=== PATIENT | female | born 1945 | race Caucasian/White ===

== ENCOUNTER → 2016-09-13 | Outpatient (CLI) | payer OTHER | LOC: MMPC 11:11 | DX: M19.041 Primary osteoarthritis, right hand (principal); M25.552 Pain in left hip; D64.9 Anemia, unspecified; F32.9 Major depressive disorder, single episode, unspecified; K58.9 Irritable bowel syndrome, unspecified; E11.9 Type 2 diabetes mellitus without complications ==

== ENCOUNTER 2016-10-30 20:03 | Emergency (ER) | payer OTHER ==
[2016-10-30] MEDS ORDERED: fentaNYL Inj 100 MCG/2 ML VIAL IVP ONE (20:08)
[2016-10-30] MEDS ORDERED: NITROGLYCERIN 0.4 MG SL TAB (BOTTLE OF 3) SL ONE (20:08)
[2016-10-30] MEDS ORDERED: ONDANSETRON 4 MG/2 ML VIAL IVP ONE (20:08)
[2016-10-30] MEDS ORDERED: Sodium Chloride 0.9% 1,000 ML PRIMARY IV ONE (20:08)
[2016-10-30] MEDS ORDERED: ASPIRIN 81 MG (BABY) CHEWABLE TABLET PO ONE (20:09)
--- NOTE | 2016-10-30 20:13 | PDOC ---
Chest Pain HPI - General Chief Complaint: Chest Pain Stated Complaint: Chest Pain Date Seen by Provider: 10/30/16 Time Seen by Provider: 20:11 Source: Patient Exam Limitations: POSITIVE: No limitations Treatment Prior to Arrival: REPORTS: Nitroglycerin Nurse's Notes Reviewed & Considered: Yes EMS Report Reviewed & Considered: Verbal - History of Present Illness Initial Comments: In today with chief complaint of chest pain. At 1900 tonight patient was eating fish sticks when she developed a sharp substernal chest pain. No radiation, no shortness of breath. She denies any fever chills or sweats, nausea vomiting or diarrhea, no hematuria dysuria, no headache. Body Location Affected: REPORTS: Chest Timing: REPORTS: Abrupt Duration: 1 hour Severity: Moderate Context: REPORTS: Rest Quality: REPORTS: "Pain", Sharpness, Stabbing Radiation: REPORTS: None Associated Symptoms: REPORTS: Other (None) Modifying Factors: improves with: Nitroglycerin Similar Symptoms Previously: No Recently seen/treated/hospitalized: No Any Prior Injuries Related to Current Complaint?: No - Patient Home Medications Home Medications: Home Medications Aspirin [Ecotrin] 81 mg PO DAILY 03/08/13 Calcium Carbonate/Vitamin D3 [Calcium 600 + Vit D 200 Tablet] 1 tab PO QD #30 tab 07/07/15 Desvenlafaxine Succinate [Pristiq Er] 1 tab PO QHS #30 tab 07/07/15 Nitroglycerin 0.4 mg SL ONCE #25 tab 09/14/15 Fesoterodine Fumarate [Toviaz] 1 tab PO QD #90 tab 04/25/16 Furosemide 1 tab PO 3XW #15 tab 05/22/16 Eluxadoline [Viberzi] 1 tab PO BID #60 tab 05/31/16 Isosorbide Mononitrate [Isosorbide Mononitrate Er] 1 tab PO QD #90 tab 07/10/16 Montelukast Sodium 1 tab PO QD #30 tab 07/10/16 Cholecalciferol (Vitamin D3) [Vitamin D3] 1 tab PO QD #30 tab 08/09/16 Cyanocobalamin (Vitamin B-12) [Vitamin B12] 1 tab PO QD #30 tab 08/09/16 Lactobacillus Combo No.10 [Probiotic] 2 cap PO QD PRN #60 cap 08/09/16 Lorazepam [Ativan] 0.5 - 2 tab PO QHS PRN #90 tab 08/09/16 Atorvastatin Calcium 1 tab PO QD #30 tab 08/16/16 Fluticasone/Salmeterol [Advair 250-50 Diskus] 1 puff INH BID #1 puff 08/17/16 Bacillus Coagulans [Probiotic] 1 cap PO BID #60 cap 09/13/16 Ibuprofen 1 tab PO BID PRN #60 tab 09/15/16 Ondansetron HCl [Zofran] 1 tab PO QID PRN #30 tab 09/26/16 Diltiazem HCl [Cardizem Cd] 1 tab PO QD #90 cap 10/20/16 Levothyroxine Sodium 1 tab PO QD #30 tab 10/25/16 - Patient Allergies Allergies/Adverse Reactions: Allergies Allergy/AdvReac Type Severity Reaction Status Date / Time codeine Allergy Severe RASH Verified 10/30/16 20:35 morphine Allergy Severe RASH Verified 10/30/16 20:35 cephalexin monohydrate Allergy Intermediate UNSURE Verified 10/30/16 20:35 [From Keflex] ciprofloxacin [From Cipro] Allergy Intermediate UNSURE Verified 10/30/16 20:35 ciprofloxacin HCl Allergy Intermediate UNSURE Verified 10/30/16 20:35 [From Cipro] latex Allergy Intermediate LATEX Verified 10/30/16 20:35 sulfamethoxazole Allergy Intermediate RASH Verified 10/30/16 20:35 [From Bactrim] trimethoprim [From Bactrim] Allergy Intermediate RASH Verified 10/30/16 20:35 cyclobenzaprine HCl AdvReac Intermediate BEHAVIOR Verified 10/30/16 20:35 [From Flexeril] CHANGE TAPE AdvReac Intermediate RASH/ Uncoded 10/30/16 20:35 IRRITATION Past Medical History - heen HEENT History: Hard of Hearing Cardiovascular History: Hypertension, Angina, Hyperlipidemia, Other (please comment) Additional Cardiovasular History: Hx of Stent placements, CABG-3 vessel Respiratory History: Sleep Apnea, Home Oxygen Use, Other (please comment) Additional Respiratory History: Hx of pulmonary fibrosis. 1L AT NIGHT Gastrointestinal History: Diverticulitis, Irritable Bowel Syndrome, Other ( please comment) Additional Gastrointestinal History: Hx of cholecystectomy Genitourinary History: Denies History Endocrine History: Type 2 Diabetes (diet), Hypothyroidism Musculoskeletal History: Arthritis Neurological History: Denies History Blood Disorders: Denies History Psychiatric History: Denies History History of Sexually Transmitted Diseases: No Cancer History: Denies History History of MDRO: No History of Other Communicable Diseases: No Alcohol Use: None Substance Use Type: None Previous Surgical History: Yes Type / Date of Surgery: COURTNEY Anesthesia Reactions: No Significant Family History: No pertinent family hx ROS - Limitations ROS Limitations: No Limitations Constitution: REPORTS: Denies Symptoms Cardiovascular: REPORTS: Chest Pain Respiratory: REPORTS: Denies Resp Symptoms Neurological: REPORTS: Denies Neuro Symptoms Gastrointestinal: REPORTS: Denies GI Symptoms Endocrine: REPORTS: Denies Symptoms Musculoskeletal: REPORTS: Denies MS Symptoms Genitourinary: REPORTS: Denies Symptoms Eyes: REPORTS: Denies Symptoms ENT: REPORTS: Denies Symptoms Skin: REPORTS: Denies Skin Symptoms Lympathic: REPORTS: Denies Lympathic Symptoms Immunologic: POSITIVE: Denies Symptoms Psychiatric: POSITIVE: Denies Psych Symptoms Chest Pain PE - General Appearance General Appearance: REPORTS: Alert, Cooperative, No Evidence of Trauma, Mild Distress - HEENT HEENT: POSITIVE: Head Inspection Nml, Eyes Inspection Nml, Ears Inspection Nml, Nose Inspection Nml, PERRL, EOMI - Neck Neck: REPORTS: Normal Inspection - Respiratory Respiratory: REPORTS: No Respiratory Distress, Breath Sounds Normal, Chest Non- Tender - Cardiovascular Cardiovascular: REPORTS: Regular Rate and Rhythm, Heart Sounds Normal - Abdomen Abdomen: Soft: (All Quadrants), Normal Bowel Sounds: (All Quadrants), Denies Tenderness: (All Quadrants) - Skin Skin: REPORTS: Intact, Normal For Race, Warm, Dry, No Rash - Extremities Extremity: Non-Tender: (All Extremities), Normal ROM: (All Extremities), Normal Inspection: (All Extremities) - Neurological / Psychological Neurological: POSITIVE: Affect Apporpriate, Oriented X3 Chest Pain Progress - Results Reviewed by me Xrays/CTs/US Reviewed by me: Yes Discussed with Radiologist: Yes Lab Results Reviewed: Yes Lab Results:: Laboratory Results 10/30/16 10/30/16 Range/Units 20:12 20:17 WBC 4.63 L (4.8-10.8) 10^3/uL RBC 3.93 L (4.20-5.40) 10^6/uL Hgb 12.1 (12.0-16.0) g/dL Hct 35.0 L (37.0-47.0) % MCV 89.1 (81-99) FL MCH 30.8 (27-31) PG MCHC 34.6 (33-37) g/dL RDW Std Deviation 38.6 L (39-50) fL RDW Coeff of Carlin 12.0 (11.5-14.5) % Plt Count 259 (140-350) 10*3/uL MPV 9.5 (7.4-12.2) FL Immature Gran % (Auto) 0.2 (0-5) % Neut % (Auto) 49.0 L (50-80) % Lymph % (Auto) 36.1 (10-50) % [place] % (Auto) 8.6 (5-15) % Eos % (Auto) 5.0 (0-8) % Baso % (Auto) 1.1 H (0-1) % Immature Gran # (Auto) 0.01 10*3/UL Neut # (Auto) 2.27 10*3/UL Lymph # (Auto) 1.67 10*3/uL [place] # (Auto) 0.40 (0.3-0.8) 10*3/UL Eos # (Auto) 0.23 10*3/UL Baso # (Auto) 0.05 10*3/UL WBC Morphology Comment Normal morphology (NORM) Plt Morphology Comment Normal morphology (NORM) RBC Morph Comment Normal morphology (NORM) ESR 11 (0-20) MM/HR PT 10.8 (9.7-11.4) secs INR 1.05 (0.00-5.90) N/A D-Dimer 0.45 (0.00-0.59) mg/L Sodium 141 (135-145) meq/L Potassium 3.8 (3.8-5.2) meq/L Chloride 105 (98-112) meq/L Carbon Dioxide 24 (23-33) meq/L Anion Gap 12 (5-20) BUN 24 H (7-22) mg/dL Creatinine 0.7 (0.50-1.20) mg/dL Estimated GFR (>60 ml/min/1.73m(2)) BUN/Creatinine Ratio 34.28 H (6-20) Glucose 127 H (78-110) mg/dL Calculated Osmolality 297.0 H (267-292) mOsm/kg Calcium 9.5 (8.7-10.7) mg/dL Magnesium 1.7 (1.6-2.4) mg/dL Total Bilirubin 0.4 (0.3-1.2) mg/dL AST 23 (8-39) IU/L ALT 48 (9-52) IU/L Alkaline Phosphatase 110 (38-126) IU/L Troponin I < 0.012 (< 0.040) ng/mL C-Reactive Protein 0.5 (0.0-0.9) mg/dL NT-Pro-B Natriuret Pep 602 H (0-125) PG/ML Total Protein 6.3 (6.1-8.0) g/dL Albumin 3.9 (3.5-4.8) g/dL Globulin 2.4 L (2.50-4.10) g/dL Albumin/Globulin Ratio 1.60 (1.3-2.0) mg/g - Patient's Progress Pain Medication Addressed: POSITIVE: Yes Status: POSITIVE: Improved Quality Measure Initiative: CP/AMI: POSITIVE: EKG, ASA - Consult Consulting MD will see pt:: POSITIVE: [facility] Counseled: POSITIVE: Patient, RE: Lab Results, RE: Radiology Results, RE: DX Patient Care Time - Estimated PCT Patient Care Time (In Minutes): 45 Vital Signs - VS Reviewed Vital Signs Reviewed: Yes Discharge Clinical Impression: Chest pain Discharge Disposition: Against Medical Advice Condition: Stable Patient Instructions Given at Discharge: Chest Pain (ED) Follow Up With: NAVNEET HARE [Primary Care Provider] -
[2016-10-30 20:15] LABS: BASOPHILS # (AUTO) 0.05 10*3/UL; BASOPHILS % (AUTO) 1.1 % (0-1); HEMOGLOBIN 12.1 g/dL (12.0-16.0); IMM GRAN % (AUTO) 0.2 % (0-5); IMM GRAN# (AUTO) 0.01 10*3/UL; LYMPHOCYTES # (AUTO) 1.67 10*3/uL; LYMPHOCYTES % (AUTO) 36.1 % (10-50); MEAN CORPUSCULAR HEMOGLOBIN 30.8 PG (27-31); MEAN CORPUSCULAR HGB CONC 34.6 g/dL (33-37); MEAN PLATELET VOLUME 9.5 FL (7.4-12.2); MONOCYTES % (AUTO) 8.6 % (5-15); NEUTROPHILS # (AUTO) 2.27 10*3/UL; RED BLOOD COUNT 3.93 10^6/uL (4.20-5.40); WHITE BLOOD COUNT 4.63 10^3/uL (4.8-10.8)
[2016-10-30 20:35] LABS: BILIRUBIN,TOTAL 0.4 mg/dL (0.3-1.2); BUN/CREATININE RATIO 34.28 (6-20); C-REACTIVE PROTEIN 0.5 mg/dL (0.0-0.9); CALCIUM 9.5 mg/dL (8.7-10.7); CREATININE 0.7 mg/dL (0.50-1.20); MAGNESIUM 1.7 mg/dL (1.6-2.4); PLATELET MORPHOLOGY COMMENT NORMAL MORPHOLOGY (NORM); POTASSIUM 3.8 meq/L (3.8-5.2); TOTAL PROTEIN 6.3 g/dL (6.1-8.0)
[2016-10-30 20:49] LABS: PROTHROMBIN TIME 10.8 secs (9.7-11.4)
[2016-10-30 20:51] LABS: ERYTHROCYTE SEDIMENTATION RATE 11 MM/HR (0-20)
[2016-10-30 21:10] VITALS: RESP 18; TEMP 98.5
--- NOTE | 2016-10-30 21:28 | DI ---
AP CHEST X-RAY, 10/30/2016 8:08 PM : Clinical History: Chest pain. Previous Exam: 08/10/2015. There is no acute soft tissue or bony abnormality. The patient is status post CABG. There is cardiome gia. The vessels are hazy are in more clustered and more numerous than on the previous study in this patient probably has very mild CHF. There is no acute infiltrate or effusion. Mediastinal structures are normal. There are no pulmonary nodules. Readin. There is no acute infiltrate or effusion. 2. Cardiomegaly with what probably represents very mild CHF.
--- NOTE | 2016-10-30 22:48 | EKG ---
[address] [place] [id number] Measurements Intervals [place] Rate: 68 P: 71 TX: 165 QRS: -38 QRSD: 99 T: 41 QT: 382 QTc: 399 Interpretive Statements SINUS RHYTHM LEFT AXIS DEVIATION MODERATE T-WAVE ABNORMALITY, CONSIDER ANTERIOR ISCHEMIA INTERPRETATION BASED ON A DEFAULT AGE OF 40 YEARS Compared to ECG 04/12/2015 18:39:34 Possible ischemia now present T-wave abnormality still present Electronically Signed On 10-31-16 12:18:37 [facility] by Desmond Mcdonough [email or web address]
== END 2016-10-30 22:30 | disposition left against medical advice (07) ==
LOC: ER 20:03
DX: R07.9 Chest pain, unspecified (principal); E11.9 Type 2 diabetes mellitus without complications
CPT/HCPCS: 71010; 80053; 83735; 83880; 84484; 85025; 85379; 85610; 85652; 86140; 93005; 93010; 96374; 96375; 99284 ×2; J3010; J2405

== ENCOUNTER → 2016-11-08 | Outpatient (CLI) | payer OTHER | LOC: MMPC 09:00 | DX: M19.042 Primary osteoarthritis, left hand (principal); M19.041 Primary osteoarthritis, right hand; D64.9 Anemia, unspecified; I25.10 Atherosclerotic heart disease of native coronary artery without angina pectoris; I10 Essential (primary) hypertension; K58.9 Irritable bowel syndrome, unspecified; E03.9 Hypothyroidism, unspecified; E11.9 Type 2 diabetes mellitus without complications | CPT/HCPCS: 99213; G0463 ==

== ENCOUNTER → 2016-12-21 | Outpatient (CLI) | payer OTHER | LOC: MMPC 11:11 | DX: R51 Headache (principal); M25.552 Pain in left hip; I25.10 Atherosclerotic heart disease of native coronary artery without angina pectoris; E11.9 Type 2 diabetes mellitus without complications; I10 Essential (primary) hypertension; F32.9 Major depressive disorder, single episode, unspecified; E78.5 Hyperlipidemia, unspecified; M19.042 Primary osteoarthritis, left hand; M19.041 Primary osteoarthritis, right hand; D64.9 Anemia, unspecified ==

== ENCOUNTER → 2016-12-28 | Outpatient (CLI) | payer OTHER ==
--- NOTE | 2016-12-28 13:37 | DI ---
CT HEAD SCAN WITHOUT IV CONTRAST, 12/28/2016 1:16 PM : Clinical History: Chronic tension-type headache, not intractable. Previous Exam: None at this facility. Scans are obtained from the foramen magnum to the vertex without IV contrast. The fourth ventricle is of normal size, shape, position and contour. The third and lateral ventricles are mildly dilated but are otherwise normal. There are old less than 5 mm diameter lacunar infarcts in both heads of the caudate nuclei and in the anterior limb of the right internal capsule. No acute hemorrhagic or bland infarct is present. There are multiple punctate periventricular white matter edyta encies bilaterally that extend into the watershed territory, consistent with small vessel ischemic di sease. This amount of ischemic disease is appropriate for the patient's age. There is moderate cerebe llar and mild cerebral atrophy. There are no extracerebral mantles or shift of the midline structures . Bone window evaluation is normal. The paranasal sinuses are normal. READIN. There are old lacunar infarcts in the head of both caudate nuclei and in the anterior limb of the right internal capsule. There is no acute hemorrhagic or bland infarct. 2. Small vessel ischemic disease. 3. Mild cerebral and moderate cerebellar atrophy.
== END ==
LOC: CT 13:06
DX: G44.229 Chronic tension-type headache, not intractable (principal); I67.82 Cerebral ischemia; G31.9 Degenerative disease of nervous system, unspecified
CPT/HCPCS: 70450

== ENCOUNTER → 2017-01-30 | Outpatient (CLI) | payer OTHER ==
--- NOTE | 2017-01-30 16:20 | DI ---
HISTORY: Right hip pain. FINDINGS: Examination reveals demineralization and degenerative arthritic changes. There is no defi nite evidence of recent fracture or dislocation. IMPRESSION: 1. No acute fracture identified. If symptoms should persist, a follow up examination is suggested.
== END ==
LOC: MOB LAB 14:25
DX: M25.551 Pain in right hip (principal); M16.11 Unilateral primary osteoarthritis, right hip
CPT/HCPCS: 73502

== ENCOUNTER → 2017-02-12 | Outpatient (CLI) | payer OTHER | LOC: MMPC 11:11 | DX: E11.9 Type 2 diabetes mellitus without complications (principal); G44.229 Chronic tension-type headache, not intractable; I25.10 Atherosclerotic heart disease of native coronary artery without angina pectoris; F32.9 Major depressive disorder, single episode, unspecified; D64.9 Anemia, unspecified; K58.9 Irritable bowel syndrome, unspecified; E03.9 Hypothyroidism, unspecified; M25.552 Pain in left hip ==

== ENCOUNTER 2017-06-06 10:24 | Inpatient (IN) ==
[2017-06-06] MEDS ORDERED: NORMAL SALINE 10 ML SYRINGE FLUSH IVP PRN ×2 (11:13→16:07)
[2017-06-06] MEDS ORDERED: Sodium Chloride 0.9% 1,000 ML PRIMARY IV ONE (11:13)
[2017-06-06 11:37] LABS: BASOPHILS # (AUTO) 0.01 10*3/UL; BASOPHILS % (AUTO) 0.2 % (0-1); EOSINOPHILS # (AUTO) 0.06 10*3/UL; Hematocrit [HCT] 33.6 % (37.0-47.0); Hemoglobin [HGB] 11.4 g/dL (12.0-16.0); LYMPHOCYTES # (AUTO) 0.68 10*3/uL; MEAN CORPUSCULAR HEMOGLOBIN 30.3 PG (27-31); MEAN CORPUSCULAR HGB CONC 33.9 g/dL (33-37); MEAN CORPUSCULAR VOLUME 89.4 FL (81-99); MEAN PLATELET VOLUME 9.5 FL (7.4-12.2); MONOCYTES # (AUTO) 0.36 10*3/UL (0.3-0.8); MONOCYTES % (AUTO) 5.8 % (5-15); NEUTROPHILS # (AUTO) 5.05 10*3/UL; NEUTROPHILS % (AUTO) 81.8 % (50-80); RED BLOOD COUNT 3.76 10^6/uL (4.20-5.40)
[2017-06-06 11:46] LABS: MAGNESIUM 1.7 mg/dL (1.6-2.4)
[2017-06-06 11:48] LABS: BILIRUBIN,URINE NEGATIVE (NEG); CLARITY,URINE CLEAR (CLEAR); COLOR,URINE YELLOW (Y); GLUCOSE, URINE (UA) NEGATIVE (NEG); NITRATE,URINE NEGATIVE (NEG); OCCULT BLOOD,URINE Trace-intact (NEG); PROTEIN,URINE NEGATIVE (NEG); UROBILINOGEN,URINE 0.2 EU/dL (0.2)
[2017-06-06 11:51] LABS: LIPASE 29 IU/L (23-300)
[2017-06-06 11:53] LABS: BLOOD UREA NITROGEN 10 mg/dL (7-22); SERUM ALBUMIN 3.5 g/dL (3.5-4.8)
[2017-06-06 12:00] LABS: BACTERIA,URINE RARE; RENAL EPITHELIAL CELLS,URINE RARE; URINE SAMPLE TYPE CATH SPECIMEN
[2017-06-06 12:23] LABS: PLATELET MORPHOLOGY COMMENT NORMAL MORPHOLOGY (NORM); RBC MORPHOLOGY COMMENT NORMAL MORPHOLOGY (NORM); WBC MORPHOLOGY COMMENT NORMAL MORPHOLOGY (NORM)
--- NOTE | 2017-06-06 13:18 | DI ---
CT HEAD SCAN WITHOUT IV CONTRAST, 06/06/2017 11:13 AM : Clinical History: Confusion. Head trauma with falls. Previous Exam: 05/18/2017. Scans are obtained from the foramen magnum to the vertex without IV contrast. The fourth ventricle is of normal size, shape, position and contour. The third and lateral ventricles are mildly dilated but are otherwise normal. There are is no evidence of an acute intracranial hemor rhagic focus, but there are old lacunar infarcts of both heads of the caudate nuclei. There is mild s mall vessel ischemic disease. There is mild cerebellar and cerebral atrophy. There are no extracerebr al mantles or shift of the midline structures. Bone window evaluation is normal. The paranasal sinuse s are normal. READIN. There is no evidence of an acute intracranial hemorrhagic focus. 2. Old lacunar infarcts involving the heads of the caudate nuclei. 3. Mild small vessel ischemic disease. 4. Mild cerebellar and cerebral atrophy. 5. There has been no significant interval change.
--- NOTE | 2017-06-06 13:21 | DI ---
AP /LATERAL CHEST X-RAY, 06/06/2017 11:13 AM : Clinical History: Weakness and confusion. Previous Exam: 06/05/2017. The patient is status post CABG. A vascular stent is present in the middle third of the LAD. There is cardiomegaly with CHF similar to the previous exam. No acute infiltrate is present but there is a sm all right pleural effusion also unchanged. Mediastinal structures are normal. Readin. Cardiomegaly with CHF and a small right pleural effusion. The patient is status post CABG and joe cement of a cardiac stent. 2. There has been no significant interval change.
--- NOTE | 2017-06-06 13:32 | DI ---
CT ABDOMEN SCAN WITH IV CONTRAST, 06/06/2017 11:17 AM : Clinical History: Lower abdominal pain. Previous Exam: 02/04/2016. Scans are performed from the lower lung bases through the liver and kidneys with IV contrast. 75 ml o f Isovue 300 was injected IV. No oral or rectal contrast was ordered. There is a small right pleural effusion. The liver is normal. The patient is status post cholecystect carline and the common bile duct measures 10 mm and this is to within normal limits for a postcholecystec curry patient. There is no abnormality of the spleen, pancreas, and adrenal glands. Both kidneys are n ormal in size, shape, position and contour. There is no hydronephrosis or hydroureter. No renal or ur eteral calculi are present. There are no abnormal retrocrural or periaortic nodes. No ascites is pres ent. READIN. Normal CT abdomen scan. 2. Small right pleural effusion. CT PELVIS SCAN WITH IV CONTRAST, 06/06/2017 11:17 AM: Clinical History: See above. Previous Exam: 02/04/2016. Scans are performed from just superior to the umbilicus to the symphysis pubis with IV contrast. This is the same bolus of contrast used for the CT scans of the abdomen. Scans through the lower abdomen and pelvis show no masses or abnormal fluid collections. There is no adenopathy. The appendix is not identified with certainty but there is no inflammatory mass either in the cecum or in the right lower quadrant. The small bowel, terminal ileum, and ileocecal valve are n ormal. The ascending and descending colon are normal. The transverse colon is filled with stool and t here does appear to be more enhancement of the mucosa than other portions of the colon. There is no p eriserosal inflammatory/infiltrative change. The sigmoid, rectosigmoid, and rectum are normal. There are no hernias. The patient is status post hysterectomy and bilateral salpingo-oophorectomy. READIN. The transverse colon is filled with stool and there does appear to be more enhancement of this po rtion of the colon than the remaining portions of the large bowel. However, there is no periserosal m esenteric inflammatory/infiltrative change in the mucosa is not thickened. This can be an artifact, a lthough a localized mild colitis cannot entirely be excluded. 2. The remainder of the exam is normal.
--- NOTE | 2017-06-06 14:26 | PDOC ---
Abdomen/Flank HPI - General Chief Complaint: GI Bleed / Rectal Pain Stated Complaint: HEMORROIDS, BRIGHT RED BLOOD IN STOOL Date Seen by Provider: 06/06/17 Time Seen by Provider: 10:42 Source: POSITIVE: Patient, EMS Exam Limitations: POSITIVE: No limitations Nurse's Notes Reviewed & Considered: Yes EMS Report Reviewed & Considered: Verbal - History of Present Illness Initial Comments: The patient is a 71 year old female who is brought to the emergency room by ambulance. Patient states that for about the last 24 hours she has had lower abdominal pain and nausea. She lives alone and has no relatives in the area. She called her sales manager prearranged funerals and told the food processing plant manager that she was feeling ill. The food processing plant manager then called the ambulance who brought her to the emergency room. Patient was seen for similar symptoms yesterday in our emergency room. Patient also complains of "bleeding hemorrhoids "for the past 2 weeks. Patient states that she had a "ischemic stroke " in December. History of type II diabetes mellitus, hypertension, hypothyroidism and hypercholesterolemia. Patient has had a triple coronary artery bypass, hysterectomy and cholecystectomy. She denies any fevers or chills. No vomiting or diarrhea. Patient fell at [employer] on May 30 and sustained some right sided rib fractures, for which she was seen in the emergency room. Body Location Affected: REPORTS: Abdomen Timing: REPORTS: Gradual, Getting Worse Duration: >24 hours Severity: Moderate Quality: REPORTS: "Pain" (Mainly lower abdomen) Abdominal Pain Onset Location: REPORTS: RLQ, LLQ, Periumbilical Abdominal Pain Radiation: REPORTS: No radiation Context: REPORTS: None Associated Symptoms: REPORTS: Nausea, Other (Bright red blood in stool). DENIES : Back pain, Bloody Emesis, Chest pain, Coffee Grounds Emesis, Chills, Diaphoresis, Fever, Fatigue, Headache, Heartburn, Loss of Appetite, Rash, Shortness of breath, Swelling/mass in abdomen, Syncope, Testicular Pain, Vomiting, Weakness, Grossly Bloody Diarrhea, Constipation, Diarrhea, Dysuria, Incontinent Stool, Incontinent Urine, Mucous Diarrhea, Difficulty Walking, Dizziness, Light Headedness, Numbness Similar Symptoms Previously: Yes (as above) Recent Care Received: REPORTS: Denies, Recently Seen, Treated by MD (As above) Any Prior Injuries Related to Current Complaint?: No - Patient Home Medications Home Medications: Home Medications Aspirin [Ecotrin] 81 mg PO DAILY 03/08/13 Calcium Carbonate/Vitamin D3 [Calcium 600 + Vit D 200 Tablet] 1 tab PO QD #30 tab 07/07/15 Nitroglycerin 0.4 mg SL ONCE #25 tab 09/14/15 Fesoterodine Fumarate [Toviaz] 1 tab PO QD #90 tab 04/25/16 Cholecalciferol (Vitamin D3) [Vitamin D3] 1 tab PO QD #30 tab 08/09/16 Cyanocobalamin (Vitamin B-12) [Vitamin B12] 1 tab PO QD #30 tab 08/09/16 Lactobacillus Combo No.10 [Probiotic] 2 cap PO QD PRN #60 cap 08/09/16 Lorazepam [Ativan] 0.5 - 2 tab PO QHS PRN #90 tab 08/09/16 Bacillus Coagulans [Probiotic] 1 cap PO BID #60 cap 09/13/16 Ondansetron HCl [Zofran] 1 tab PO QID PRN #30 tab 09/26/16 Eluxadoline [Viberzi] 1 tab PO BID #60 tab 12/18/16 Potassium Chloride 1 tab PO 2XW #10 tab 12/21/16 Desvenlafaxine Succinate [Pristiq] 1 tab PO QD #30 tab NS 01/09/17 Ibuprofen 1 tab PO BID PRN #60 tab 01/15/17 Isosorbide Mononitrate [Isosorbide Mononitrate Er] 1 tab PO QD #30 tab 03/01/17 atorvastatin 40 mg tablet 40 mg PO QDAY #30 tab 06/01/17 fluticasone 250 mcg-salmeterol 50 mcg/dose blistr powdr for inhalation 1 inh INH BID #1 puff 06/01/17 furosemide 40 mg tablet 40 mg PO 3XW #15 tab 06/01/17 levothyroxine 150 mcg capsule 150 mcg PO QDAY #30 cap NS 06/01/17 montelukast 10 mg tablet 10 mg PO QDAY #30 tab 06/01/17 - Patient Allergies Allergies/Adverse Reactions: Allergies 3 Allergy/AdvReac Type Severity Reaction Status Date / Time codeine Allergy Severe RASH Verified 06/06/17 10:31 morphine Allergy Severe RASH Verified 06/06/17 10:31 cephalexin monohydrate Allergy Intermediate UNSURE Verified 06/06/17 10:31 [From Keflex] ciprofloxacin [From Cipro] Allergy Intermediate UNSURE Verified 06/06/17 10:31 ciprofloxacin HCl Allergy Intermediate UNSURE Verified 06/06/17 10:31 [From Cipro] latex Allergy Intermediate LATEX Verified 06/06/17 10:31 sulfamethoxazole Allergy Intermediate RASH Verified 06/06/17 10:31 [From Bactrim] trimethoprim [From Bactrim] Allergy Intermediate RASH Verified 06/06/17 10:31 cyclobenzaprine HCl AdvReac Intermediate BEHAVIOR Verified 06/06/17 10:31 [From Flexeril] CHANGE TAPE AdvReac Intermediate RASH/ Uncoded 06/06/17 10:31 IRRITATION Past Medical History - heen HEENT History: Hard of Hearing, Other (please comment) Additional HEENT History: WEARS GLASSES Cardiovascular History: Hypertension, Angina, CAD, Hyperlipidemia, Other ( please comment) Additional Cardiovasular History: Hx of Stent placements, CABG-3 vessel Respiratory History: Sleep Apnea, Home Oxygen Use, Other (please comment) Additional Respiratory History: Hx of pulmonary fibrosis. 1L AT NIGHT Gastrointestinal History: Diverticulitis, Irritable Bowel Syndrome, Other ( please comment) Additional Gastrointestinal History: Hx of cholecystectomy Genitourinary History: Denies History Endocrine History: Type 2 Diabetes (diet), Hypothyroidism Musculoskeletal History: Arthritis Prosthesis or Implant: No Neurological History: TIA Blood Disorders: Denies History Psychiatric History: Denies History History of Sexually Transmitted Diseases: No Female Reproductive History: Hysterectomy Cancer History: Denies History In Past Year Been Physically Harmed or Verbally Threatened: No (PER PATIENT) History of MDRO: No History of Other Communicable Diseases: No Tobacco Use: Never Smoker Alcohol Use: None In the Past 12 Months, Have Used or Abuse Any Substance: None Previous Surgical History: Yes Type / Date of Surgery: CHOLECYSTECTOMY, ORIF RIGHT FEMUR, "TUMOR" REMOVAL LEFT SIDE OF NECK WITH REVISION, HYSTERECTOMY, CORONARY BIPASS X 3 Anesthesia Reactions: No Malignant Hyperthermia: No Family History of Malignant Hyperthermia: No Significant Family History: No pertinent family hx Past Medical History Reviewed: Reviewed - No Changes ROS - Limitations ROS Limitations: No Limitations Constitution: REPORTS: Denies Symptoms Cardiovascular: REPORTS: Denies Cardiac Symptoms Respiratory: REPORTS: Denies Resp Symptoms Neurological: REPORTS: Confusion (Patient states that she has felt confused lately.) Gastrointestinal: REPORTS: Abdominal Pain, Nausea, Bloody Stools (Bright red blood in stool) Endocrine: REPORTS: Denies Symptoms Musculoskeletal: REPORTS: Denies MS Symptoms Genitourinary: REPORTS: Denies Symptoms Eyes: REPORTS: Denies Symptoms ENT: REPORTS: Denies Symptoms Skin: REPORTS: Denies Skin Symptoms Lympathic: REPORTS: Denies Lympathic Symptoms Immunologic: POSITIVE: Denies Symptoms Psychiatric: POSITIVE: Denies Psych Symptoms Abdominal/Flank Pain PE - General Appearance General Appearance: POSITIVE: Alert, Cooperative, No Acute Distress, No Evidence of Trauma - HEENT HEENT: POSITIVE: Head Inspection Nml, Eyes Inspection Nml, Ears Inspection Nml, Nose Inspection Nml, Oral/Dental Inspect. Nml, Pharynx Inspect. Nml, PERRL, EOMI - Neck Neck: POSITIVE: Normal Inspection, No Apparent Injury - Respiratory Respiratory: POSITIVE: No Respiratory Distress, Breath Sounds Normal, Chest Non- Tender - Cardiovascular Cardiovascular: POSITIVE: Regular Rate and Rhythm, Heart Sounds Normal, Equal Pulses, Strong Pulses Peripheral Pulses: Radial (R): 2+, Radial (L): 2+ - Chest Chest: POSITIVE: Non Tender - Abdomen Abdomen: Soft: (All Quadrants), Normal Bowel Sounds: (All Quadrants), Denies Tenderness: (RUQ), (LUQ), No Splenomegaly: (All Quadrants), No Hepatomegaly: ( All Quadrants), No Guarding: (All Quadrants), No Rebound: (All Quadrants), No Palpable Pulse: (All Quadrants), No Palpabale Mass: (All Quadrants), No Distention: (All Quadrants), No Rigidity: (All Quadrants), Tenderness Noted: ( RLQ), (LLQ) Additional Abdominal Details: Abdominal examination shows bowel sounds to be active. Patient expresses pain on palpation lower abdomen and paraumbilical area, left greater than right. No masses, organomegaly or rebound. - Genital / Rectal Rectal: POSITIVE: Non Tender, Heme Positive Stool (Mildly), Decreased Rectal Tone. NEGATIVE: Normal Rectal Tone (Lax), Tenderness, Fecal Impaction (Shortly after patient arrived she attempted to have a bowel movement and with this activity she was noted to have a rectal prolapse. This was easily replaced manually. Then she had another episode later on in her emergency room stay, which again was easily reduced.) - Back Back: POSITIVE: Normal Inspection - Skin Skin: POSITIVE: Intact, Normal For Race, Warm, Dry, No Rash - Extremities Extremity: Non-Tender: (All Extremities), Normal ROM: (All Extremities), Normal Inspection: (All Extremities) - Neurological Neurological: POSITIVE: Oriented X3, health spa manager Normal As Tested, Motor Normal, Sensation Normal, 5, 6 - Psychological Psychiatric: POSITIVE: Affect Appropriate, Mood Appropriate Images - Complete Complete: 1 - Tender on palpation 2 - Tender on palpation Abdomen Progress - Results Reviewed by me Xrays/CTs/US Reviewed by me: Yes Discussed with Radiologist: Yes Radiology Findings: CT scan head normal. CT scan abdomen and pelvis with IV contrast compatible with transverse colitis Lab Results Reviewed by Me: Yes (catheter UA compatible with UTI) CBC and BMP: 06/06/17 11:24 06/06/17 11:24 - Patient's Progress Pain Medication Addressed: POSITIVE: Not Applicable School/Work Release Addressed: POSITIVE: Not Applicable Re-examine Time: 14:00 Re-Examine Comment: Rectal prolapse reduced 2 in the emergency room as above. Patient in no acute distress. Diagnoses discussed with patient. Admission recommended for further evaluation and treatment. Status: POSITIVE: Improved, Re-Examined - Consult Consult (If Yes, Name of Consulting MD & Time Called): Yes (Dr. Hopkins, hospitalist, [id number]) Consulting MD will see pt:: POSITIVE: [facility] [place] Admit Counseled: POSITIVE: Patient, RE: Lab Results, RE: Radiology Results, RE: DX, RE : Need for F/U Patient Care Time - Estimated PCT Patient Care Time (In Minutes): 60 Vital Signs - Recent Vital Signs Vital Signs: Vital Signs (Last 8 hours) Temp Pulse Resp BP Pulse Ox 06/06/17 10:24 98.0 F 75 17 141/86 94 - VS Reviewed Vital Signs Reviewed: Yes Discharge Clinical Impression: Colitis, Rectal prolapse, Urinary tract infection Discharge Disposition: Admit to Inpatient Condition: Stable Follow Up With: ROXANNA SAMUELS [Primary Care Provider] - Date Decision to Admit to Inpatient: 06/06/17 Time Decision to Admit to Inpatient: 14:20
[2017-06-06] MEDS ORDERED: LIDOCAINE W/ SODIUM BICARB 0.5 ML SYR SUBD PRN (16:07)
[2017-06-06] MEDS ORDERED: BISACODYL 10 MG SUPPOSITORY RECTAL PRN (16:07)
[2017-06-06] MEDS ORDERED: NITROGLYCERIN 0.4 MG SL TAB (BOTTLE OF 3) SL PRN (16:07)
[2017-06-06] MEDS ORDERED: BISACODYL 5 MG TABLET PO PRN (16:07)
[2017-06-06] MEDS: Ertapenem Inj 1 GM in Sodium Chloride 0.9% 100 ML IV SCH (16:52)
[2017-06-06] MEDS: ONDANSETRON 4 MG/2 ML VIAL IVP PRN (18:06)
[2017-06-06] MEDS: FLUTICASONE/SALMETEROL 250/50 UD INHALER INH SCH (18:48)
[2017-06-06] MEDS: KETOROLAC 15 MG/1 ML VIAL IVP PRN (19:16)
[2017-06-06] MEDS: Ondansetron ODT Tab 4 MG TAB PO PRN (19:16)
--- NOTE | 2017-06-06 20:12 | PDOC ---
HPI - History of Present Illness History of Present Illness: This very nice 71-year-old female seen in the ER complaining of abdominal pain in the lower area plus some nausea over the last 24 hours. She does live alone and called the information services manager who called an ambulance which brought her to the ER she was seen yesterday for similar symptoms. In her history is also positive for ischemic stroke back in December also has a history of hypertension and type II diabetes. Also has a history of coronary artery disease with triple bypass occasional nausea with dry heaves. CT scan of the abdomen and pelvis read mild very mild transverse colitis lactic acid is normal there is no bacteria in the urine developed some WBCs. She also states that over the last week and a half every time she has a bowel movement she has rectal prolapse she does have a friend that's a retired nurse has been helping her to put it back in. It also happened again on the floor and the nurses at the taking care of it Past Medical History Medical History: Coronary artery disease, diabetes, hypertension, hypercholesterolemia Surgical History: Triple bypass, ischemic stroke,CHOLECYSTECTOMY, ORIF RIGHT FEMUR, "TUMOR" REMOVAL LEFT SIDE OF NECK WITH REVISION, HYSTERECTOMY, CORONARY BIPASS X 3 Tobacco Use: Never Smoker In the Past 12 Months, Have Used or Abuse Any of the Following Substance: None Alcohol Use: None Medication / Allergies Home Medications: Home Medications Medication Instructions Recorded Confirmed Type Aspirin [Ecotrin] 81 mg PO DAILY 03/08/13 06/06/17 History Calcium Carbonate/Vitamin D3 1 tab PO QD #30 tab 07/07/15 06/06/17 History [Calcium 600 + Vit D 200 Tablet] Nitroglycerin 0.4 mg SL ONCE #25 tab 09/14/15 06/06/17 History Fesoterodine Fumarate [Toviaz] 1 tab PO QD #90 tab 04/25/16 06/06/17 History Cholecalciferol (Vitamin D3) 1 tab PO QD #30 tab 08/09/16 06/06/17 Rx [Vitamin D3] Cyanocobalamin (Vitamin B-12) 1 tab PO QD #30 tab 08/09/16 06/06/17 Rx [Vitamin B12] Lactobacillus Combo No.10 2 cap PO QD PRN #60 cap 08/09/16 06/06/17 History [Probiotic] Lorazepam [Ativan] 0.5 - 2 tab PO QHS PRN #90 tab 08/09/16 06/06/17 History Bacillus Coagulans [Probiotic] 1 cap PO BID #60 cap 09/13/16 06/06/17 Rx Ondansetron HCl [Zofran] 1 tab PO QID PRN #30 tab 09/26/16 06/06/17 History Eluxadoline [Viberzi] 1 tab PO BID #60 tab 12/18/16 Clinic Potassium Chloride 1 tab PO 2XW #10 tab 12/21/16 06/06/17 Rx Desvenlafaxine Succinate [Pristiq] 1 tab PO QD #30 tab NS 01/09/17 06/06/17 Rx Ibuprofen 1 tab PO BID PRN #60 tab 01/15/17 06/06/17 History Isosorbide Mononitrate [Isosorbide 1 tab PO QD #30 tab 03/01/17 06/06/17 Rx Mononitrate Er] atorvastatin 40 mg tablet 40 mg PO QDAY #30 tab 06/01/17 06/06/17 Rx fluticasone 250 mcg-salmeterol 50 1 inh INH BID #1 puff 06/01/17 06/06/17 Rx mcg/dose blistr powdr for inhalation furosemide 40 mg tablet 40 mg PO 3XW #15 tab 06/01/17 06/06/17 Rx levothyroxine 150 mcg capsule 150 mcg PO QDAY #30 cap NS 06/01/17 06/06/17 Rx montelukast 10 mg tablet 10 mg PO QDAY #30 tab 06/01/17 06/06/17 Rx Allergies/Adverse Reactions: Allergies 3 Allergy/AdvReac Type Severity Reaction Status Date / Time codeine Allergy Severe RASH Verified 06/06/17 18:44 morphine Allergy Severe RASH Verified 06/06/17 18:44 cephalexin monohydrate Allergy Intermediate UNSURE Verified 06/06/17 18:44 [From Keflex] ciprofloxacin [From Cipro] Allergy Intermediate UNSURE Verified 06/06/17 18:44 ciprofloxacin HCl Allergy Intermediate UNSURE Verified 06/06/17 18:44 [From Cipro] latex Allergy Intermediate LATEX Verified 06/06/17 18:44 sulfamethoxazole Allergy Intermediate RASH Verified 06/06/17 18:44 [From Bactrim] trimethoprim [From Bactrim] Allergy Intermediate RASH Verified 06/06/17 18:44 cyclobenzaprine HCl AdvReac Intermediate BEHAVIOR Verified 06/06/17 18:44 [From Flexeril] CHANGE TAPE AdvReac Intermediate RASH/ Uncoded 06/06/17 18:44 IRRITATION Review of Systems - Eye Exam Eye Exam: REPORTS: Negative System Review - Ear/Nose Exam Ear/Nose Exam: REPORTS: Negative System Review - Respiratory Respiratory: DENIES: Negative System Review, Cough, Sputum, Dyspnea At Rest, Dyspnea with Exertion, Pleuritic Pain, Hemoptysis, Wheezing, Other, See HPI - Cardiovascular Cardiovascular: DENIES: Negative System Review, Chest Pain, Edema, Syncope, Palpitations, Orthopnea, Paroxysmal Nocturnal Dyspnea, Other, See HPI - Gastrointestinal Gastrointestinal / Abdominal: REPORTS: Nausea, Abdominal Pain - Genitourinary Genitourinary: REPORTS: Urgency - Neurological Neurologic: DENIES: Negative System Review, Headache, Numbness/Paresthesia, Tremors, Weakness, Seizures, Head Trauma, LOC, Dizziness, Confusion, Memory Loss , Difficulty Walking, Incoordination, Other, See HPI Exam - Vitals Vital Signs: Vital Signs Temperature 97.4 F Temperature Source Oral Pulse Rate [Pulse Oximeter] 84 Pulse Rate 81 Respiratory Rate 18 Blood Pressure [Left Arm] 164/75 Blood Pressure 163/60 Pulse Ox 92 Oxygen Delivery Method Room Air Height 4 ft 9 in Weight 116 lb - General General Appearance: No Acute Distress, Cooperative - Head Head Exam: Normal Inspection, Normocephalic, Atraumatic - Eye Eye Exam: POSITIVE: Normal Appearance, PERRL, EOMI - Respiratory Respiratory Exam: POSITIVE: Clear to Auscultation - Bilaterally, Breathing Non Labored, Normal To Percussion - Cardiovascular Cardiovascular Exam: POSITIVE: RRR, No Murmur, No Clicks, No Gallops, No Rubs, PMI Non-Displaced - GI/Abdominal GI/Abdominal Exam: POSITIVE: Normal Bowel Sounds, Non Tender, Soft - Extremities Extremities Exam: POSITIVE: No Clubbing Present, No Edema Present, No Cyanosis Present Results - Labs CBC and BMP: 06/06/17 11:24 06/06/17 11:24 Assessment and Plan - Patient Problems (1) Colitis Current Visit: Yes Status: Acute Comment: Start Invanz Code(s): K52.9 - Noninfective gastroenteritis and colitis, unspecified (2) Rectal prolapse Current Visit: Yes Status: Acute Comment: Consult surgery for recommendation Code(s): K62.3 - Rectal prolapse (3) Urinary tract infection Current Visit: Yes Status: Acute Comment: Continue Invanz Code(s): N39.0 - Urinary tract infection, site not specified
[2017-06-06] MEDS: ATORVASTATIN 40 MG TABLET PO SCH (21:17)
[2017-06-06] MEDS: Sodium Chloride 0.9% 1,000 ML PRIMARY IV SCH (21:19)
[2017-06-06] MEDS: ELUXADOLINE 75 MG PO SCH (22:19)
[2017-06-06] MEDS: LORazepam 1 MG TABLET PO PRN (22:26)
[2017-06-07] MEDS: LEVOTHYROXINE 75 MCG TABLET PO SCH (04:50)
[2017-06-07] MEDS: Sodium Chloride 0.9% 1,000 ML PRIMARY IV SCH (04:51)
[2017-06-07 05:06] LABS: BASOPHILS # (AUTO) 0.02 10*3/UL; BASOPHILS % (AUTO) 0.4 % (0-1); EOSINOPHILS # (AUTO) 0.24 10*3/UL; EOSINOPHILS % (AUTO) 5.2 % (0-8); Hematocrit [HCT] 30.8 % (37.0-47.0); Hemoglobin [HGB] 10.5 g/dL (12.0-16.0); LYMPHOCYTES # (AUTO) 1.26 10*3/uL; MEAN CORPUSCULAR HEMOGLOBIN 30.6 PG (27-31); MEAN CORPUSCULAR HGB CONC 34.1 g/dL (33-37); MEAN CORPUSCULAR VOLUME 89.8 FL (81-99); MEAN PLATELET VOLUME 9.3 FL (7.4-12.2); MONOCYTES # (AUTO) 0.38 10*3/UL (0.3-0.8); MONOCYTES % (AUTO) 8.2 % (5-15); NEUTROPHILS # (AUTO) 2.74 10*3/UL; NEUTROPHILS % (AUTO) 58.9 % (50-80); RED BLOOD COUNT 3.43 10^6/uL (4.20-5.40)
[2017-06-07 05:12] LABS: PLATELET MORPHOLOGY COMMENT NORMAL MORPHOLOGY (NORM); RBC MORPHOLOGY COMMENT NORMAL MORPHOLOGY (NORM); WBC MORPHOLOGY COMMENT NORMAL MORPHOLOGY (NORM)
[2017-06-07 05:15] LABS: BLOOD UREA NITROGEN 8 mg/dL (7-22); BUN/CREATININE RATIO 13.33 (6-20); SERUM ALBUMIN 2.8 g/dL (3.5-4.8)
[2017-06-07] MEDS: FLUTICASONE/SALMETEROL 250/50 UD INHALER INH SCH ×2 (06:24→18:45)
[2017-06-07] MEDS: ASPIRIN EC 81 MG TABLET PO SCH (08:59)
[2017-06-07] MEDS: POTASSIUM CHLORIDE 20 MEQ TAB PO SCH ×2 (09:00→20:17)
[2017-06-07] MEDS: Montelukast Tab 10 MG TAB PO SCH (09:00)
[2017-06-07] MEDS ORDERED: POTASSIUM CHLORIDE 20 MEQ TAB PO SCH (09:00)
[2017-06-07] MEDS: Calcium/Vit D 600mg/400u Tab 1 TAB TABLET PO SCH (09:00)
[2017-06-07] MEDS: HYDROcodone-APAP 5 MG -325 MG TABLET PO PRN (09:01)
[2017-06-07] MEDS: CHOLECALCIFEROL 1000 IU TABLET PO SCH (09:01)
[2017-06-07] MEDS: ELUXADOLINE 75 MG PO SCH ×2 (09:01→20:16)
[2017-06-07] MEDS: ISOSORBIDE MONONITRATE 30 MG SR 24H TABLET PO SCH (09:01)
[2017-06-07] MEDS: DESVENLAFAXINE SUCCINATE 100 MG PO SCH (09:02)
[2017-06-07] MEDS: CYANOCOBALAMIN 5000 MCG PO SCH (09:02)
[2017-06-07] MEDS: FESOTERODINE FUMARATE 4 MG PO SCH (10:08)
--- NOTE | 2017-06-07 11:40 | PDOC(PROG) ---
Interval History: Patient is doing much better today pain is decreased also on physical exam. Overall appears frail and weak Objective : Data - Labs CBC and BMP: 06/07/17 04:53 06/07/17 04:53 Objective : Exam - General General Appearance: Cooperative - Head Head Exam: Normal Inspection - Eye Eye Exam: Normal Appearance - Respiratory Respiratory Exam: Clear to Auscultation - Bilaterally, Breathing Non Labored, Normal To Percussion - Cardiovascular Cardiovascular Exam: No Murmur, No Clicks - GI/Abdominal GI/Abdominal Exam: Non Tender, Non Distended, Soft Assessment and Plan - Patient Problems (1) Colitis Current Visit: Yes Status: Acute Comment: Continue Invanz patient is improving Code(s): K52.9 - Noninfective gastroenteritis and colitis, unspecified (2) Rectal prolapse Current Visit: Yes Status: Acute Comment: Consult surgery or get their opinion Code(s): K62.3 - Rectal prolapse (3) Urinary tract infection Current Visit: Yes Status: Acute Comment: Continue Invanz Code(s): N39.0 - Urinary tract infection, site not specified (4) Generalized weakness Current Visit: Yes Status: Acute Comment: Consult PTOT Code(s): R53.1 - Weakness
[2017-06-07] MEDS: ONDANSETRON 4 MG/2 ML VIAL IVP PRN (12:09)
--- NOTE | 2017-06-07 15:27 | PTI REPORT ---
Thank you for the referral of Judy Gonzalez. She was seen on 06/07/17 for an inpatient evaluation secondary to generalized weakness. SUBJECTIVE: The patient is a 71-year-old female. The patient reports she is in 7/10 right lower quadrant pain; she has a hard time getting comfortable and is very nauseous. The patient states she lives alone in the senior housing. She states she has help with laundry, dishes, and cleaning. She does her own grocery shopping and ambulates with a rollator and has a cane also. The patient states she had a small stroke in December and has had balance issues ever since. She reports having fallen two weeks ago in [place], breaking two ribs on the right side. PAST MEDICAL HISTORY: Past medical history can be found in the patient's medical record. OBJECTIVE FINDINGS: Bed mobility: The patient requires mod assist to transfer from supine to sit. Transfers: The patient is able to complete sit to stand transfer from edge of bed to four point walker with supervision. Ambulation: The patient was able to ambulate 100 feet with four point walker, contact guard assist for safety, and cueing. Range of motion: Range of motion of bilateral lower extremities is within functional limits. Strength: Manual muscle testing revealed 4/5 bilateral lower extremity strength throughout. Balance: The patient has fair plus sitting static and dynamic balance. Standing static balance is fair. Dynamic standing balance is fair minus. ASSESSMENT: The patient has subjective and objective findings of generalized weakness and poor balance and would benefit from continued skilled care at this time. Short-Term Goals: To be met by discharge from inpatient: Patient will be able to ambulate 150 feet with least restrictive assistive device and least amount of assistance for household ambulation. Patient will be able to complete supine to sit bed mobility transfers with modified independence. Patient will be able to demonstrate fair static and dynamic standing balance. Long-Term Goals: To be met following discharge from inpatient: Patient will be able to ambulate 300 feet with least restrictive assistive device and least amount of assistance. Patient will demonstrate 4+/5 bilateral lower extremity strength for carry over for gait and safety with transfers. TREATMENT PLAN: Patient will be seen B.I.D during the week and one time per day over the weekend as an inpatient to address the above goals and objectives. INITIAL TREATMENT: Treatment today consisted of the initial evaluation followed by range of motion resisted activities and ambulation with four point walker and contact guard assist. BRI
--- NOTE | 2017-06-07 15:57 | OTI REPORT ---
Thank you for the referral of Judy Gonzalez. She was seen on 06/07/17 for an occupational therapy inpatient evaluation secondary to generalized weakness. SUBJECTIVE: The patient is a 71-year-old female who is being seen today secondary to having abdominal pain. The patient had a UTI, colitis, and a rectal prolapse. Prior to admission the patient lived in the [facility] by herself. She reports that she typically does pretty well on her own; however, she had a TIA in December and since that time her balance has been a little more off. She states a week ago she fell at her mandaen and broke two ribs. She was not using an assistive device at that time, but since that time she states that she knows she is going to have to use her four wheeled walker with a seat from here on out. Typically everyday the patient walks from her apartment to the [facility] for meals and that is basically where she gets her meals. She can make simple stuff at home, but for the most part does not like to cook. The patient has a tub/shower combination and typically does not sit to take her showers; however, she said from now on she might have to get someone to assist her as well as a shower chair. The patient does have assistance with her laundry and med management as Iraida from the [facility] sets her meds up weekly. The patient states she doesn't have to cook and she has assistance with cleaning. The patient does not drive; she typically uses the bus to go do her grocery shopping. The patient says she has no family to help her at this point in time and being at the [facility] has been beneficial because she can get the assistance that she needs there. The patient reports that she has neuropathy of both fingers and she doesn't feel them very well and she drops things frequently. The patient reports she is somewhat nauseated today and reported that she did feel weaker. PAST MEDICAL HISTORY: Past medical history can be found in the patient's medical record. OBJECTIVE FINDINGS: Range of motion: Today the patient had within functional limits for upper extremity range of motion. Strength: Strength throughout was 4/5 for shoulder flexion/extension, abduction/ adduction, and internal/external rotation, 4/5 for elbow flexion/extension, and 3+/5 for wrist flexion/extension. 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 FIM Levels: Eatin Groomin Bathin Dressing upper extremities: Supervision Dressing lower extremities: Min assist Toileting: Independent Transfer to toilet: Min assist Transfer to tub and shower: Min assist Comprehension: 7 Expression: 7 Social interaction: 7 Memory: (This is going to be further assessed) ASSESSMENT: The patient should be able to return home to her apartment at the [facility] as long as she is getting the assistance that she had previously. We may need to look into some assistance with her showers. Problem List: Decreased strength Decreased activity tolerance Decreased ability to complete transfers Short-Term Goals: To be met by discharge from inpatient: Patient will be able to dress self including set up independently. Patient will increase upper extremity strength to 5/5. Patient will be able to complete all functional transfers independently. Patient will improve her overall activity tolerance to be able to tolerate 15- 20 minutes of activity. Patient will participate in a Mo[employer] screening for her memory and cognitive processing. Patient will be able to shower self with stand by assist. Long-Term Goals: To be met following discharge from inpatient: Patient will return home to her apartment with the assistance that she has previously stated. The therapist would like to get the patient assistance with showers 2x a week. TREATMENT PLAN: Patient will be seen B.I.D during the week and one time per day over the weekend as an inpatient to address the above goals and objectives. INITIAL TREATMENT: Treatment today consisted of the initial evaluation followed by assessing lower extremity dressing. The patient then performed a toilet transfer with min assist. She was independent with toilet hygiene. The patient then stood at sink x6 minutes to complete hygiene activities including washing face, hair, and teeth. BRI
[2017-06-07] MEDS: Ertapenem Inj 1 GM in Sodium Chloride 0.9% 100 ML IV SCH (16:10)
--- NOTE | 2017-06-07 17:16 | PT.PROG ---
Progress Note Progress Note: S: Judy reports that she is experiencing a lot of bloating and nausea. She states that she would like to go for a walk upstairs, but that she is not ready to go down to the treatment area yet. O: Judy performed bed mobility with min assist x1 and came to a sit on EOB. Treatment included: ambulation with AD and min assist x300ft. Judy was left with OT. A: Angélica struggles to maintain balance during ambulation and would cross her foot and subsequently sway to the side while walking. P: Continue POC.
[2017-06-07] MEDS: Ondansetron ODT Tab 4 MG TAB PO PRN (17:54)
[2017-06-07] MEDS ORDERED: CALCIUM CARBONATE 500 MG (TUMS) CHEWABLE TABLET PO ONE (20:05)
[2017-06-07] MEDS: LORazepam 1 MG TABLET PO PRN (20:25)
[2017-06-07] MEDS: ATORVASTATIN 40 MG TABLET PO SCH (20:25)
[2017-06-07] MEDS: CALCIUM CARBONATE 500 MG (TUMS) CHEWABLE TABLET PO PRN (20:25)
[2017-06-08] MEDS: LEVOTHYROXINE 75 MCG TABLET PO SCH (04:31)
[2017-06-08 04:47] LABS: BASOPHILS # (AUTO) 0.02 10*3/UL; BASOPHILS % (AUTO) 0.3 % (0-1); EOSINOPHILS # (AUTO) 0.29 10*3/UL; Hematocrit [HCT] 36.1 % (37.0-47.0); Hemoglobin [HGB] 12.5 g/dL (12.0-16.0); LYMPHOCYTES # (AUTO) 1.18 10*3/uL; MEAN CORPUSCULAR HEMOGLOBIN 30.9 PG (27-31); MEAN CORPUSCULAR HGB CONC 34.6 g/dL (33-37); MEAN CORPUSCULAR VOLUME 89.4 FL (81-99); MEAN PLATELET VOLUME 9.5 FL (7.4-12.2); MONOCYTES # (AUTO) 0.51 10*3/UL (0.3-0.8); MONOCYTES % (AUTO) 7.1 % (5-15); NEUTROPHILS # (AUTO) 5.21 10*3/UL; NEUTROPHILS % (AUTO) 72.2 % (50-80); RED BLOOD COUNT 4.04 10^6/uL (4.20-5.40)
[2017-06-08 04:59] LABS: BLOOD UREA NITROGEN 6 mg/dL (7-22)
[2017-06-08 05:05] LABS: PLATELET MORPHOLOGY COMMENT NORMAL MORPHOLOGY (NORM); RBC MORPHOLOGY COMMENT NORMAL MORPHOLOGY (NORM); WBC MORPHOLOGY COMMENT NORMAL MORPHOLOGY (NORM)
[2017-06-08] MEDS: FLUTICASONE/SALMETEROL 250/50 UD INHALER INH SCH ×2 (06:33→18:32)
[2017-06-08] MEDS ORDERED: FUROSEMIDE 40 MG TABLET PO SCH (09:00)
[2017-06-08] MEDS: POTASSIUM CHLORIDE 20 MEQ TAB PO SCH ×2 (10:08→22:29)
[2017-06-08] MEDS: ISOSORBIDE MONONITRATE 30 MG SR 24H TABLET PO SCH (10:08)
[2017-06-08] MEDS: Montelukast Tab 10 MG TAB PO SCH (10:08)
[2017-06-08] MEDS: FESOTERODINE FUMARATE 4 MG PO SCH (10:09)
[2017-06-08] MEDS: ASPIRIN EC 81 MG TABLET PO SCH (10:09)
[2017-06-08] MEDS: DESVENLAFAXINE SUCCINATE 100 MG PO SCH (10:09)
[2017-06-08] MEDS: ELUXADOLINE 75 MG PO SCH ×3 (10:09→21:10)
[2017-06-08] MEDS: CHOLECALCIFEROL 1000 IU TABLET PO SCH (10:09)
[2017-06-08] MEDS: Calcium/Vit D 600mg/400u Tab 1 TAB TABLET PO SCH (10:10)
[2017-06-08] MEDS: CYANOCOBALAMIN 5000 MCG PO SCH (10:10)
--- NOTE | 2017-06-08 10:56 | PDOC(PROG) ---
Interval History: Patient is much improved and no further abdominal pain nausea or vomiting. Objective : Data - Labs CBC and BMP: 06/08/17 04:13 06/08/17 04:13 Objective : Exam - Head Head Exam: Normal Inspection - Respiratory Respiratory Exam: Clear to Auscultation - Bilaterally, Breathing Non Labored, Normal To Percussion - Cardiovascular Cardiovascular Exam: RRR, No Murmur, No Clicks, No Gallops, No Rubs - GI/Abdominal GI/Abdominal Exam: Normal Bowel Sounds, Non Tender, Non Distended, Soft - Extremities Extremities Exam: No Clubbing Present, No Edema Present, No Cyanosis Present Assessment and Plan - Patient Problems (1) Colitis Current Visit: Yes Status: Acute Code(s): K52.9 - Noninfective gastroenteritis and colitis, unspecified (2) Rectal prolapse Current Visit: Yes Status: Acute Code(s): K62.3 - Rectal prolapse (3) Urinary tract infection Current Visit: Yes Status: Acute Code(s): N39.0 - Urinary tract infection, site not specified (4) Generalized weakness Current Visit: Yes Status: Acute Code(s): R53.1 - Weakness - Assessment / Plan Additional Assessment/Plan Details: #1 mild colitis transverse colon now resolved continue IV Invanz 1 more day #2 possible UTI patient on Invanz can be taken off IV tomorrow and started on orals to finish a seven-day course #3 history of hemorrhoids and occasional bloody stools with a rectal prolapse recommended colonoscopy and possible surgery consult as outpatient as per patient for possible colonoscopy #4 history of anxiety [facility] for life for the is following her #5 history of irritable bowel syndrome on medication for this
[2017-06-08] MEDS: Ertapenem Inj 1 GM in Sodium Chloride 0.9% 100 ML IV SCH (17:08)
--- NOTE | 2017-06-08 17:08 | OT.PROG ---
Progress Note Progress Note: S: pt stated she was waiting on her friends. She agreed to get dressed for therapy. O: pt was seen in for therapy this afternoon. She completed LE dressing with apoorva Parrish. She then needed to use the restroom and completed transfer Ind. She requested to be assisted with toileting by nursing. She finished up toileting with nursing and completed hygiene at sink Ind. She then returned to chair and completed donning of UE's INd. She transferred downstairs with CGA and walker. She attempted time on arm bike, but could only do about 2 min due to rib pain. She then transferred to mat table and completed light ther ex with RTB. exercises completed x10 only as to not increase pain. She transferred to Nu step and PT took over tx. A: pt may continue to benefit from therapy to complete CPT. Continue to strengthen and monitor rib pain. P: continue per POC.
--- NOTE | 2017-06-08 17:28 | PT.PROG ---
Progress Note Progress Note: S. Patient stated that she feels off balance today. O. Patient ambulated 175 feet to the therapy gym where she performed Ojeda Balance Scale and scored a 30/46. Patient ambulated 175 feet back to her room where she was left in her chair with alarm and call light. A. according to Ojeda Balance scale patient is a high fall risk and appears to have cognitive issues which also causes more of a balance deficit. P. Continue POC.
--- NOTE | 2017-06-08 17:43 | PT.PROG ---
Progress Note Progress Note: S. Patient stated that she is feeling good this morning. O. Patient ambulated 175 feet to the therapy gym where she performed seated exercises in the form of; marches, heel toe raises, long arc quads, ball squeezes, resisted knee flexion, clamshells, all x 10 bilaterally with red thera -band, sit to stands x 10. Patient ambulated 175 feet back to her room where she was left in her chair with alarm and call light. A. Patient tolerated exercise fair today, she continues to be confused and struggles with balance deficits, Patient would continue to benefit from skilled therapy at this time. P. Continue POC.
[2017-06-08] MEDS: LORazepam 1 MG TABLET PO PRN (21:06)
[2017-06-08] MEDS: ATORVASTATIN 40 MG TABLET PO SCH (21:07)
[2017-06-08] MEDS: KETOROLAC 15 MG/1 ML VIAL IVP PRN (21:07)
[2017-06-08] MEDS: HYDROcodone-APAP 5 MG -325 MG TABLET PO PRN (21:07)
[2017-06-08] MEDS ORDERED: LORazepam 2 MG/1 ML VIAL IVP ONE (22:27)
[2017-06-09] MEDS: HYDROcodone-APAP 5 MG -325 MG TABLET PO PRN ×2 (04:13→19:33)
[2017-06-09] MEDS: LEVOTHYROXINE 75 MCG TABLET PO SCH ×2 (04:14→06:44)
[2017-06-09] MEDS: FLUTICASONE/SALMETEROL 250/50 UD INHALER INH SCH ×2 (06:42→18:50)
[2017-06-09] MEDS: CHOLECALCIFEROL 1000 IU TABLET PO SCH (08:48)
[2017-06-09] MEDS: POTASSIUM CHLORIDE 20 MEQ TAB PO SCH ×2 (08:49→21:10)
[2017-06-09] MEDS: ASPIRIN EC 81 MG TABLET PO SCH (08:49)
[2017-06-09] MEDS: Montelukast Tab 10 MG TAB PO SCH (08:49)
[2017-06-09] MEDS: ISOSORBIDE MONONITRATE 30 MG SR 24H TABLET PO SCH (08:49)
[2017-06-09] MEDS: Calcium/Vit D 600mg/400u Tab 1 TAB TABLET PO SCH (08:50)
[2017-06-09] MEDS: ELUXADOLINE 75 MG PO SCH ×2 (08:51→20:12)
[2017-06-09] MEDS: CYANOCOBALAMIN 5000 MCG PO SCH (09:15)
[2017-06-09] MEDS: DESVENLAFAXINE SUCCINATE 100 MG PO SCH (09:16)
[2017-06-09] MEDS: FESOTERODINE FUMARATE 4 MG PO SCH (09:16)
--- NOTE | 2017-06-09 10:07 | PDOC(PROG) ---
Interval History: Patient had a good night's rest slept well. Had the rectal prolapse again this morning which was reduced. Objective : Data - Labs CBC and BMP: 06/08/17 04:13 06/08/17 04:13 Objective : Exam - General General Appearance: Cooperative - Head Head Exam: Normal Inspection, Normocephalic - Respiratory Respiratory Exam: Clear to Auscultation - Bilaterally, Breathing Non Labored, Normal To Percussion - Cardiovascular Cardiovascular Exam: RRR, No Murmur, No Clicks - GI/Abdominal GI/Abdominal Exam: Non Tender, Non Distended, Soft - Extremities Extremities Exam: No Clubbing Present, No Edema Present Assessment and Plan - Patient Problems (1) Colitis Current Visit: Yes Status: Acute Comment: Improved. IV antibiotics start Augmentin twice a day for 3 more days Code(s): K52.9 - Noninfective gastroenteritis and colitis, unspecified (2) Rectal prolapse Current Visit: Yes Status: Acute Comment: We will make her an appointment with the general surgery as an outpatient will also need colonoscopy most likely even though most likely the bleeding is secondary to the rectal prolapse and most likely hemorrhoids Code(s): K62.3 - Rectal prolapse (3) Urinary tract infection Current Visit: Yes Status: Acute Comment: This is resolved Code(s): N39.0 - Urinary tract infection, site not specified (4) Generalized weakness Current Visit: Yes Status: Acute Comment: Continue PTOT Code(s): R53.1 - Weakness (5) Anxiety Current Visit: Yes Status: Acute Comment: Patient has been followed by [facility] for chronic anxiety disorder Code(s): F41.9 - Anxiety disorder, unspecified (6) Irritable bowel syndrome Current Visit: Yes Status: Acute Comment: Mainly has diarrhea but her primary care physician put her on viberzi Code(s): K58.9 - Irritable bowel syndrome without diarrhea
[2017-06-09] MEDS: Amoxicill/Clav 875/125mg Tab 1 TAB TAB PO SCH (20:11)
[2017-06-09] MEDS: LORazepam 1 MG TABLET PO PRN (20:11)
[2017-06-09] MEDS: ATORVASTATIN 40 MG TABLET PO SCH (20:11)
[2017-06-09] MEDS: DESVENLAFAXINE SUCCINATE PO SCH (20:12)
--- NOTE | 2017-06-09 20:58 | EKG ---
[address] [place] [address] Measurements Intervals [place] Rate: 80 P: 19 MD: 151 QRS: -36 QRSD: 93 T: 84 QT: 352 QTc: 389 Interpretive Statements SINUS RHYTHM LEFT AXIS DEVIATION [QRS AXIS < -30] ST DEVIATION AND MODERATE T-WAVE ABNORMALITY, CONSIDER ANTERIOR ISCHEMIA Compared to ECG 05/18/2017 19:02:15 T-wave abnormality now present Possible ischemia now present Electronically Signed On 06-10-17 18:07:59 MDT by Desmond Mcdonough [email or web address]
[2017-06-09] MEDS ORDERED: DESVENLAFAXINE SUCCINATE 100 MG PO ONE (21:00)
[2017-06-09] MEDS ORDERED: LORazepam 2 MG/1 ML VIAL IVP ONE (22:10)
[2017-06-10] MEDS: HYDROcodone-APAP 5 MG -325 MG TABLET PO PRN (03:00)
[2017-06-10] MEDS: LEVOTHYROXINE 75 MCG TABLET PO SCH (05:06)
[2017-06-10] MEDS: FLUTICASONE/SALMETEROL 250/50 UD INHALER INH SCH (07:31)
[2017-06-10] MEDS: ISOSORBIDE MONONITRATE 30 MG SR 24H TABLET PO SCH (09:59)
[2017-06-10] MEDS: POTASSIUM CHLORIDE 20 MEQ TAB PO SCH (09:59)
[2017-06-10] MEDS: Amoxicill/Clav 875/125mg Tab 1 TAB TAB PO SCH ×2 (10:00→21:26)
[2017-06-10] MEDS: CHOLECALCIFEROL 1000 IU TABLET PO SCH (10:00)
[2017-06-10] MEDS: Montelukast Tab 10 MG TAB PO SCH (10:00)
[2017-06-10] MEDS: Calcium/Vit D 600mg/400u Tab 1 TAB TABLET PO SCH (10:00)
[2017-06-10] MEDS: ELUXADOLINE 75 MG PO SCH (10:01)
[2017-06-10] MEDS: ASPIRIN EC 81 MG TABLET PO SCH (10:01)
--- NOTE | 2017-06-10 12:18 | DCSUMMARY ---
Hospitalization Summary Admit Date: 06/06/17 Discharge Date: 06/10/17 Primary Diagnosis:: probable transverse colon diverticulitis Hospital Course: This is a very pleasant 71-year-old female that was admitted with nausea and abdominal pain. CT scan showed possible colon wall enhancement that could be consistent with diverticular disease and diverticulitis, but there was an awful lot of stool in the transverse colon as well. The patient is on several medications that can cause constipation, including one for irritable bowel syndrome. The patient was placed on Invanz and then this was descalated to Augmentin therapy and the patient tolerated this well. Her belly pain has resolved. She did not have any fevers or elevated white blood cell count during her admission. It was discovered that the patient has a rectal prolapse. This was reduced in the hospital. The patient states that she has had this for at least the past 6 months. She denied to me straining, but does appear to have constipation based on CT scan findings. Her potassium at one point was low, and potassium replacement allow the potassium to recover to 4.1 prior to discharge. Today, no complaints of chest pain, shortness breath, nausea or vomiting, or abdominal pain. Assessment and Plan: 1. As per discharge assessments noted 2. Disposition: Patient is discharged home. 3. Condition on discharge, stable and improved. 4. Diet: regular diet 5. Activities: resume normal activities 6. Follow-Up: 1. Dr. Hebert in one week 2. See Dr. Garces in 2 weeks to address possible colonoscopy needs. This will also help determine whether further antibiotic therapy is needed. 7. Medications at the Time of Discharge: Home Medications Medication Instructions Recorded Confirmed Type Aspirin [Ecotrin] 81 mg PO DAILY 03/08/13 06/06/17 History Calcium Carbonate/Vitamin D3 1 tab PO QD #30 tab 07/07/15 06/06/17 History [Calcium 600 + Vit D 200 Tablet] Nitroglycerin 0.4 mg SL ONCE #25 tab 09/14/15 06/06/17 History Fesoterodine Fumarate [Toviaz] 1 tab PO QD #90 tab 04/25/16 06/06/17 History Cholecalciferol (Vitamin D3) 1 tab PO QD #30 tab 08/09/16 06/06/17 Rx [Vitamin D3] Cyanocobalamin (Vitamin B-12) 1 tab PO QD #30 tab 08/09/16 06/06/17 Rx [Vitamin B12] Lorazepam [Ativan] 0.5 - 2 tab PO QHS PRN #90 tab 08/09/16 06/06/17 History Eluxadoline [Viberzi] 1 tab PO BID #60 tab 12/18/16 Clinic Potassium Chloride 1 tab PO 2XW #10 tab 12/21/16 06/06/17 Rx Desvenlafaxine Succinate [Pristiq] 1 tab PO QD #30 tab NS 01/09/17 06/06/17 Rx Ibuprofen 1 tab PO BID PRN #60 tab 01/15/17 06/06/17 History Isosorbide Mononitrate [Isosorbide 1 tab PO QD #30 tab 03/01/17 06/06/17 Rx Mononitrate ER] atorvastatin 40 mg tablet 40 mg PO QDAY #30 tab 06/01/17 06/06/17 Rx fluticasone 250 mcg-salmeterol 50 1 inh INH BID #1 puff 06/01/17 06/06/17 Rx mcg/dose blistr powdr for inhalation furosemide 40 mg tablet 40 mg PO 3XW #15 tab 06/01/17 06/06/17 Rx levothyroxine 150 mcg capsule 150 mcg PO QDAY #30 cap NS 06/01/17 06/06/17 Rx montelukast 10 mg tablet 10 mg PO QDAY #30 tab 06/01/17 06/06/17 Rx Amoxicill/Clav 875/125mg 1 tab PO BID #14 tab 06/10/17 Rx [Augmentin 875/125mg] 8. Time, care, counseling and coordination of care for this discharge is greater than 30 minutes. Exam - Vitals Vital Signs: Vital Signs Vital Signs - Last Taken Temperature 97.0 F 06/10/17 09:00 Pulse Rate 83 06/10/17 09:00 Respiratory Rate 20 06/10/17 09:00 Blood Pressure 168/64 06/10/17 09:00 Pulse Ox 92 06/10/17 09:00 Height 4 ft 9 in Weight 124 lb 14.4 oz - General General Appearance: No Acute Distress, Cooperative - Eye Eye Exam: POSITIVE: No Scleral Icterus - Respiratory Respiratory Exam: POSITIVE: Clear to Auscultation - Bilaterally, Breathing Non Labored - Cardiovascular Cardiovascular Exam: POSITIVE: RRR, No Murmur, No Clicks, No Gallops, No Rubs, No JVD - GI/Abdominal GI/Abdominal Exam: POSITIVE: Normal Bowel Sounds, Non Tender, Non Distended, Soft - Extremities Extremities Exam: POSITIVE: No Clubbing Present, No Edema Present, No Cyanosis Present - Neurological Neurological Exam: POSITIVE: Alert, Oriented x 3, No Facial Droop, Speech Intact / Clear, Moves All Extremities Equally - Psychiatric Psychiatric Exam: POSITIVE: Normal Affect, Normal Mood Data Perinent Studies: Laboratory Results 06/06/17 06/06/17 06/06/17 Range/Units 11:24 11:24 11:24 WBC 6.17 (4.8-10.8) 10^3/uL RBC 3.76 L (4.20-5.40) 10^6/uL Hgb 11.4 L (12.0-16.0) g/dL Hct 33.6 L (37.0-47.0) % MCV 89.4 (81-99) FL MCH 30.3 (27-31) PG MCHC 33.9 (33-37) g/dL RDW Std Deviation 37.9 L (39-50) fL RDW Coeff of [place] 12.0 (11.5-14.5) % Plt Count 286 (140-350) 10*3/uL MPV 9.5 (7.4-12.2) FL Immature Gran % (Auto) 0.2 (0-5) % Neut % (Auto) 81.8 H (50-80) % Lymph % (Auto) 11.0 (10-50) % [place] % (Auto) 5.8 (5-15) % Eos % (Auto) 1.0 (0-8) % Baso % (Auto) 0.2 (0-1) % Immature Gran # (Auto) 0.01 10*3/UL Neut # (Auto) 5.05 10*3/UL Lymph # (Auto) 0.68 10*3/uL [place] # (Auto) 0.36 (0.3-0.8) 10*3/UL Eos # (Auto) 0.06 10*3/UL Baso # (Auto) 0.01 10*3/UL WBC Morphology Comment Normal morphology (NORM) Plt Morphology Comment Normal morphology (NORM) RBC Morph Comment Normal morphology (NORM) Sodium (135-145) meq/L Potassium (3.8-5.2) meq/L Chloride (98-112) meq/L Carbon Dioxide (23-33) meq/L Anion Gap (5-20) BUN (7-22) mg/dL Creatinine (0.50-1.20) mg/dL BUN/Creatinine Ratio (6-20) Glucose (78-110) mg/dL Calculated Osmolality (267-292) mOsm/kg Lactic Acid 0.7 (0.70-2.10) MMOL/L Calcium (8.7-10.7) mg/dL Magnesium 1.7 (1.6-2.4) mg/dL Total Bilirubin (0.3-1.2) mg/dL AST (8-39) IU/L ALT (9-52) IU/L Alkaline Phosphatase (38-126) IU/L Troponin I (< 0.040) ng/mL Total Protein (6.1-8.0) g/dL Albumin (3.5-4.8) g/dL Globulin (2.50-4.10) g/dL Albumin/Globulin Ratio (1.3-2.0) mg/g Amylase (30-110) U/L Lipase (23-300) IU/L Ur Collection Type Cath specimen Urine Color Yellow (Y) Urine Clarity Clear (CLEAR) Urine pH 6.0 (5.0-8.5) Ur Specific [place] 1.010 (1.005-1.030) Urine Protein Negative (NEG) mg/dl Urine Glucose (UA) Negative (NEG) mg/dL Urine Ketones 15 (NEG) Urine Occult Blood Trace-intact H (NEG) Urine Nitrate Negative (NEG) Urine Bilirubin Negative (NEG) Urine Urobilinogen 0.2 (0.2) EU/dL Ur Leukocyte Esterase Negative (NEG) Urine RBC 1-3 (NONE) /hpf Urine WBC 10-15 (NONE) Ur Squamous Epith Cells None (NONE) Ur Renal Epithelial Cell Rare (NONE) Urine Crystals None Urine Bacteria Rare (NONE) Urine Casts None (NONE) Urine Mucus None (NONE) Urine Trichomonas None (NONE) Urine Yeast None (NONE) Ur Culture Indicated? Culture set 06/06/17 06/06/17 06/07/17 Range/Units 11:24 11:24 04:53 WBC 4.65 L (4.8-10.8) 10^3/uL RBC 3.43 L (4.20-5.40) 10^6/uL Hgb 10.5 L (12.0-16.0) g/dL Hct 30.8 L (37.0-47.0) % MCV 89.8 (81-99) FL MCH 30.6 (27-31) PG MCHC 34.1 (33-37) g/dL RDW Std Deviation 38.2 L (39-50) fL RDW Coeff of [place] 12.1 (11.5-14.5) % Plt Count 271 (140-350) 10*3/uL MPV 9.3 (7.4-12.2) FL Immature Gran % (Auto) 0.2 (0-5) % Neut % (Auto) 58.9 (50-80) % Lymph % (Auto) 27.1 (10-50) % [place] % (Auto) 8.2 (5-15) % Eos % (Auto) 5.2 (0-8) % Baso % (Auto) 0.4 (0-1) % Immature Gran # (Auto) 0.01 10*3/UL Neut # (Auto) 2.74 10*3/UL Lymph # (Auto) 1.26 10*3/uL [place] # (Auto) 0.38 (0.3-0.8) 10*3/UL Eos # (Auto) 0.24 10*3/UL Baso # (Auto) 0.02 10*3/UL WBC Morphology Comment Normal morphology (NORM) Plt Morphology Comment Normal morphology (NORM) RBC Morph Comment Normal morphology (NORM) Sodium 139 (135-145) meq/L Potassium 3.8 (3.8-5.2) meq/L Chloride 108 (98-112) meq/L Carbon Dioxide 22 L (23-33) meq/L Anion Gap 9 (5-20) BUN 10 (7-22) mg/dL Creatinine 0.5 (0.50-1.20) mg/dL BUN/Creatinine Ratio 20.00 (6-20) Glucose 105 (78-110) mg/dL Calculated Osmolality 286.0 (267-292) mOsm/kg Lactic Acid (0.70-2.10) MMOL/L Calcium 9.6 (8.7-10.7) mg/dL Magnesium (1.6-2.4) mg/dL Total Bilirubin 0.6 (0.3-1.2) mg/dL AST 33 (8-39) IU/L ALT 48 (9-52) IU/L Alkaline Phosphatase 88 (38-126) IU/L Troponin I (< 0.040) ng/mL Total Protein 6.0 L (6.1-8.0) g/dL Albumin 3.5 (3.5-4.8) g/dL Globulin 2.5 (2.50-4.10) g/dL Albumin/Globulin Ratio 1.40 (1.3-2.0) mg/g Amylase 41 (30-110) U/L Lipase 29 (23-300) IU/L Ur Collection Type Urine Color (Y) Urine Clarity (CLEAR) Urine pH (5.0-8.5) Ur Specific [place] (1.005-1.030) Urine Protein (NEG) mg/dl Urine Glucose (UA) (NEG) mg/dL Urine Ketones (NEG) Urine Occult Blood (NEG) Urine Nitrate (NEG) Urine Bilirubin (NEG) Urine Urobilinogen (0.2) EU/dL Ur Leukocyte Esterase (NEG) Urine RBC (NONE) /hpf Urine WBC (NONE) Ur Squamous Epith Cells (NONE) Ur Renal Epithelial Cell (NONE) Urine Crystals Urine Bacteria (NONE) Urine Casts (NONE) Urine Mucus (NONE) Urine Trichomonas (NONE) Urine Yeast (NONE) Ur Culture Indicated? 06/07/17 06/08/17 06/08/17 Range/Units 04:53 04:13 04:13 WBC 7.22 (4.8-10.8) 10^3/uL RBC 4.04 L (4.20-5.40) 10^6/uL Hgb 12.5 (12.0-16.0) g/dL Hct 36.1 L (37.0-47.0) % MCV 89.4 (81-99) FL MCH 30.9 (27-31) PG MCHC 34.6 (33-37) g/dL RDW Std Deviation 39.8 (39-50) fL RDW Coeff of [place] 12.4 (11.5-14.5) % Plt Count 277 (140-350) 10*3/uL MPV 9.5 (7.4-12.2) FL Immature Gran % (Auto) 0.1 (0-5) % Neut % (Auto) 72.2 (50-80) % Lymph % (Auto) 16.3 (10-50) % [place] % (Auto) 7.1 (5-15) % Eos % (Auto) 4.0 (0-8) % Baso % (Auto) 0.3 (0-1) % Immature Gran # (Auto) 0.01 10*3/UL Neut # (Auto) 5.21 10*3/UL Lymph # (Auto) 1.18 10*3/uL [place] # (Auto) 0.51 (0.3-0.8) 10*3/UL Eos # (Auto) 0.29 10*3/UL Baso # (Auto) 0.02 10*3/UL WBC Morphology Comment Normal morphology (NORM) Plt Morphology Comment Normal morphology (NORM) RBC Morph Comment Normal morphology (NORM) Sodium 142 139 (135-145) meq/L Potassium 2.9 L 4.1 D (3.8-5.2) meq/L Chloride 113 H 112 (98-112) meq/L Carbon Dioxide 23 20 L (23-33) meq/L Anion Gap 6 7 (5-20) BUN 8 6 L (7-22) mg/dL Creatinine 0.6 0.6 (0.50-1.20) mg/dL BUN/Creatinine Ratio 13.33 10.00 (6-20) Glucose 68 L 77 L (78-110) mg/dL Calculated Osmolality 289.0 284.0 (267-292) mOsm/kg Lactic Acid (0.70-2.10) MMOL/L Calcium 8.5 L 9.1 (8.7-10.7) mg/dL Magnesium (1.6-2.4) mg/dL Total Bilirubin 0.5 0.5 (0.3-1.2) mg/dL AST 25 26 (8-39) IU/L ALT 41 35 (9-52) IU/L Alkaline Phosphatase 63 72 (38-126) IU/L Troponin I (< 0.040) ng/mL Total Protein 5.3 L 5.3 L (6.1-8.0) g/dL Albumin 2.8 L 3.0 L (3.5-4.8) g/dL Globulin 2.5 2.3 L (2.50-4.10) g/dL Albumin/Globulin Ratio 1.10 L 1.30 (1.3-2.0) mg/g Amylase (30-110) U/L Lipase (23-300) IU/L Ur Collection Type Urine Color (Y) Urine Clarity (CLEAR) Urine pH (5.0-8.5) Ur Specific [place] (1.005-1.030) Urine Protein (NEG) mg/dl Urine Glucose (UA) (NEG) mg/dL Urine Ketones (NEG) Urine Occult Blood (NEG) Urine Nitrate (NEG) Urine Bilirubin (NEG) Urine Urobilinogen (0.2) EU/dL Ur Leukocyte Esterase (NEG) Urine RBC (NONE) /hpf Urine WBC (NONE) Ur Squamous Epith Cells (NONE) Ur Renal Epithelial Cell (NONE) Urine Crystals Urine Bacteria (NONE) Urine Casts (NONE) Urine Mucus (NONE) Urine Trichomonas (NONE) Urine Yeast (NONE) Ur Culture Indicated? 06/09/17 Range/Units 21:00 WBC (4.8-10.8) 10^3/uL RBC (4.20-5.40) 10^6/uL Hgb (12.0-16.0) g/dL Hct (37.0-47.0) % MCV (81-99) FL MCH (27-31) PG MCHC (33-37) g/dL RDW Std Deviation (39-50) fL RDW Coeff of [place] (11.5-14.5) % Plt Count (140-350) 10*3/uL MPV (7.4-12.2) FL Immature Gran % (Auto) (0-5) % Neut % (Auto) (50-80) % Lymph % (Auto) (10-50) % [place] % (Auto) (5-15) % Eos % (Auto) (0-8) % Baso % (Auto) (0-1) % Immature Gran # (Auto) 10*3/UL Neut # (Auto) 10*3/UL Lymph # (Auto) 10*3/uL [place] # (Auto) (0.3-0.8) 10*3/UL Eos # (Auto) 10*3/UL Baso # (Auto) 10*3/UL WBC Morphology Comment (NORM) Plt Morphology Comment (NORM) RBC Morph Comment (NORM) Sodium (135-145) meq/L Potassium (3.8-5.2) meq/L Chloride (98-112) meq/L Carbon Dioxide (23-33) meq/L Anion Gap (5-20) BUN (7-22) mg/dL Creatinine (0.50-1.20) mg/dL BUN/Creatinine Ratio (6-20) Glucose (78-110) mg/dL Calculated Osmolality (267-292) mOsm/kg Lactic Acid (0.70-2.10) MMOL/L Calcium (8.7-10.7) mg/dL Magnesium (1.6-2.4) mg/dL Total Bilirubin (0.3-1.2) mg/dL AST (8-39) IU/L ALT (9-52) IU/L Alkaline Phosphatase (38-126) IU/L Troponin I < 0.012 (< 0.040) ng/mL Total Protein (6.1-8.0) g/dL Albumin (3.5-4.8) g/dL Globulin (2.50-4.10) g/dL Albumin/Globulin Ratio (1.3-2.0) mg/g Amylase (30-110) U/L Lipase (23-300) IU/L Ur Collection Type Urine Color (Y) Urine Clarity (CLEAR) Urine pH (5.0-8.5) Ur Specific [place] (1.005-1.030) Urine Protein (NEG) mg/dl Urine Glucose (UA) (NEG) mg/dL Urine Ketones (NEG) Urine Occult Blood (NEG) Urine Nitrate (NEG) Urine Bilirubin (NEG) Urine Urobilinogen (0.2) EU/dL Ur Leukocyte Esterase (NEG) Urine RBC (NONE) /hpf Urine WBC (NONE) Ur Squamous Epith Cells (NONE) Ur Renal Epithelial Cell (NONE) Urine Crystals Urine Bacteria (NONE) Urine Casts (NONE) Urine Mucus (NONE) Urine Trichomonas (NONE) Urine Yeast (NONE) Ur Culture Indicated? Procedures: [address] [facility] [place] [address] PH: DD: [phone] FAX: [phone] ~DIAGNOSTIC IMAGING REPORT~ Patient: Judy Gonzalez : 1945 Sex: F Age: 71 Exam Name: CT Abdomen/Pelvis W Contrast Exam Date: 06/06/17 Report # : [id number] CPT Code: 13431 EMR/MR #: [id number] Ordering: TOMASA GLASS Admiting: Primary: Moriah Hebert MD Attending: Signed CT ABDOMEN SCAN WITH IV CONTRAST, 06/06/2017 11:17 AM : Clinical History: Lower abdominal pain. Previous Exam: 02/04/2016. Scans are performed from the lower lung bases through the liver and kidneys with IV contrast. 75 ml of Isovue 300 was injected IV. No oral or rectal contrast was ordered. There is a small right pleural effusion. The liver is normal. The patient is status post cholecystectomy and the common bile duct measures 10 mm and this is to within normal limits for a postcholecystectomy patient. There is no abnormality of the spleen, pancreas, and adrenal glands. Both kidneys are normal in size, shape, position and contour. There is no hydronephrosis or hydroureter. No renal or ureteral calculi are present. There are no abnormal retrocrural or periaortic nodes. No ascites is present. READIN. Normal CT abdomen scan. 2. Small right pleural effusion. CT PELVIS SCAN WITH IV CONTRAST, 06/06/2017 11:17 AM: Clinical History: See above. Previous Exam: 02/04/2016. Scans are performed from just superior to the umbilicus to the symphysis pubis with IV contrast. This is the same bolus of contrast used for the CT scans of the abdomen. Scans through the lower abdomen and pelvis show no masses or abnormal fluid collections. There is no adenopathy. The appendix is not identified with certainty but there is no inflammatory mass either in the cecum or in the right lower quadrant. The small bowel, terminal ileum, and ileocecal valve are normal. The ascending and descending colon are normal. The transverse colon is filled with stool and there does appear to be more enhancement of the mucosa than other portions of the colon. There is no periserosal inflammatory/ infiltrative change. The sigmoid, rectosigmoid, and rectum are normal. There are no hernias. The patient is status post hysterectomy and bilateral salpingo- oophorectomy. READIN. The transverse colon is filled with stool and there does appear to be more enhancement of this portion of the colon than the remaining portions of the large bowel. However, there is no periserosal mesenteric inflammatory/ infiltrative change in the mucosa is not thickened. This can be an artifact, although a localized mild colitis cannot entirely be excluded. 2. The remainder of the exam is normal. Dictated By: 06/06/17 1320 SULY NUÑEZ MD. Signed By: 06/06/17 1332 SULY NUÑEZ MD. [address] [facility] [place] [address] PH: DD: [phone] FAX: [phone] ~DIAGNOSTIC IMAGING REPORT~ Patient: Judy Gonzalez : 1945 Sex: F Age: 71 Exam Name: CT Head WO Contrast Exam Date: 06/06/17 Report # : [id number] CPT Code: 99949 EMR/MR #: [id number] Ordering: TOMASA GLASS Admiting: Primary: Moriah Hebert MD Attending: Signed CT HEAD SCAN WITHOUT IV CONTRAST, 06/06/2017 11:13 AM : Clinical History: Confusion. Head trauma with falls. Previous Exam: 05/18/2017. Scans are obtained from the foramen magnum to the vertex without IV contrast. The fourth ventricle is of normal size, shape, position and contour. The third and lateral ventricles are mildly dilated but are otherwise normal. There are is no evidence of an acute intracranial hemorrhagic focus, but there are old lacunar infarcts of both heads of the caudate nuclei. There is mild small vessel ischemic disease. There is mild cerebellar and cerebral atrophy. There are no extracerebral mantles or shift of the midline structures. Bone window evaluation is normal. The paranasal sinuses are normal. READIN. There is no evidence of an acute intracranial hemorrhagic focus. 2. Old lacunar infarcts involving the heads of the caudate nuclei. 3. Mild small vessel ischemic disease. 4. Mild cerebellar and cerebral atrophy. 5. There has been no significant interval change. [address] [facility] [place] [address] PH: DD: [phone] FAX: [phone] ~DIAGNOSTIC IMAGING REPORT~ Patient: Judy Gonzalez : 1945 Sex: F Age: 71 Exam Name: XR CXR 2VW LORI/ARJUN Exam Date: 06/06/17 Report # : [id number] CPT Code: 06075 EMR/MR #: [id number] Ordering: TOMASA GLASS Admiting: Primary: oMriah Hebert MD Attending: Signed AP /LATERAL CHEST X-RAY, 06/06/2017 11:13 AM : Clinical History: Weakness and confusion. Previous Exam: 06/05/2017. The patient is status post CABG. A vascular stent is present in the middle third of the LAD. There is cardiomegaly with CHF similar to the previous exam. No acute infiltrate is present but there is a small right pleural effusion also unchanged. Mediastinal structures are normal. Readin. Cardiomegaly with CHF and a small right pleural effusion. The patient is status post CABG and placement of a cardiac stent. 2. There has been no significant interval change. Dictated By: 06/06/17 1315 SULY NUÑEZ MD. Signed By: 06/06/17 1321 SULY NUÑEZ MD. Patient Problems - Patient Problem List (1) Colitis Current Visit: Yes Status: Acute Code(s): K52.9 - Noninfective gastroenteritis and colitis, unspecified Category: Medical (2) Constipation Current Visit: Yes Status: Acute Code(s): K59.00 - Constipation, unspecified Qualifiers: Constipation type: drug induced constipation Qualified Code(s): K59.03 - Drug induced constipation Category: Medical (3) Rectal prolapse Current Visit: Yes Status: Acute Code(s): K62.3 - Rectal prolapse Category : Medical (4) Hypothyroidism Current Visit: Yes Status: Acute Code(s): E03.9 - Hypothyroidism, unspecified Qualifiers: Hypothyroidism type: acquired Qualified Code(s): E03.9 - Hypothyroidism, unspecified Category: Medical (5) CAD (coronary artery disease) Current Visit: Yes Status: Chronic Code(s): I25.10 - Atherosclerotic heart disease of [place] coronary artery without angina pectoris Qualifiers: Coronary Disease-Associated Artery/Lesion type: bypass graft [place] vs. transplanted heart: [place] heart Associated angina: without angina Qualified Code(s): I25.810 - Atherosclerosis of coronary artery bypass graft(s) without angina pectoris Category: Medical (6) Anxiety Current Visit: Yes Status: Acute Code(s): F41.9 - Anxiety disorder, unspecified Category: Medical
[2017-06-10] MEDS ORDERED: Amoxicill/Clav 875/125mg Tab 1 TAB TAB PO ONE (14:00)
[2017-06-10] MEDS ORDERED: LORazepam 1 MG TABLET PO PRN (14:48)
--- NOTE | 2017-06-10 14:52 | IP.MD.NOTE ---
[facility] Assessment - - Is patient alert: Yes - - What day of the week is it: Able to identify correct day of the week What is the year: Able to identify correct year What state are we in: Able to identify correct state Problem solving question for the next 2 questions: 23, 97 How much did you spend: Able to calculate correct amount spent = $23 How much do you have left: Unable to calculate correct amount left Name as many animals as you can in one minute: 10-14 animals What were the five objects I asked you to remember: Able to recall 1 object Give me the numbers backwards eg. I say 42, you would say 24: Able to convert 87 to 78, Able to convert 649 to 946 Put in the hour marker and time at ten mintues to eleven: Hour markers okay, Time correct Place an X in the triangle: Able to identify triangle Which of the above figures is largest: Able to identfiy largest figure Read the story to answer the next 4 questions: What was the female's name: Unable to identify name When did she go back to work: Unable to recall when she will go back to work What work did she do: Unable to recall the work done What state did she live in: Unable to recall the correct state she lives in ( This patient has moderate to severe dementia.) - - Total SLUMS Score: 14 -: SLUMS Exam Scoring High School Ed Less Than High School Ed 27-30 - - - - - - - - - - Normal - - - - - - - - - -- - - - - - - - - - - MNCD - - - - - - - - - -09-22 - - - - - - - - - - Dementia - - - - - - - - -09-21 MNCD= Mild Neurocognitive Disorder
--- NOTE | 2017-06-10 14:54 | PDOC(PROG) ---
General Note Progress Note: The patient had 2 friends come up and expressed significant worry over the patient's confusion, altered mental status, and probable dementia. They wanted us to see if we keep the patient here. As we had questioned more about this situation, it appears that the patient has a legal guardian through the state for financial affairs, but no power of perinatal educator. I did an evaluation and she definitely has dementia, moderate to severe, and is probably worsened in the setting of current medical therapy. Therefore, I will hold off on discharge today. I would like to continue to work through medications workup the patient for potential reversible causes of dementia. I would also like to get case management involved to see if we can figure out the best placement for this patient as I do not believe she will be safe living alone given her underlying moderate to severe dementia. Patient Problems - Patient Problem List (1) Colitis Current Visit: Yes Status: Acute Code(s): K52.9 - Noninfective gastroenteritis and colitis, unspecified Category: Medical (2) Constipation Current Visit: Yes Status: Acute Code(s): K59.00 - Constipation, unspecified Qualifiers: Constipation type: drug induced constipation Qualified Code(s): K59.03 - Drug induced constipation Category: Medical (3) Rectal prolapse Current Visit: Yes Status: Acute Code(s): K62.3 - Rectal prolapse Category : Medical (4) Hypothyroidism Current Visit: Yes Status: Acute Code(s): E03.9 - Hypothyroidism, unspecified Qualifiers: Hypothyroidism type: acquired Qualified Code(s): E03.9 - Hypothyroidism, unspecified Category: Medical (5) CAD (coronary artery disease) Current Visit: Yes Status: Chronic Code(s): I25.10 - Atherosclerotic heart disease of [place] coronary artery without angina pectoris Qualifiers: Coronary Disease-Associated Artery/Lesion type: bypass graft [place] vs. transplanted heart: [place] heart Associated angina: without angina Qualified Code(s): I25.810 - Atherosclerosis of coronary artery bypass graft(s) without angina pectoris Category: Medical (6) Anxiety Current Visit: Yes Status: Acute Code(s): F41.9 - Anxiety disorder, unspecified Category: Medical
[2017-06-10] MEDS ORDERED: DESVENLAFAXINE SUCCINATE 100 MG PO ONE (21:00)
[2017-06-10] MEDS: IBUPROFEN 800 MG TABLET PO PRN (21:19)
[2017-06-10] MEDS: CALCIUM CARBONATE 500 MG (TUMS) CHEWABLE TABLET PO PRN (21:23)
[2017-06-10] MEDS: DESVENLAFAXINE SUCCINATE PO SCH (21:25)
[2017-06-11] MEDS: LEVOTHYROXINE 125 MCG TABLET PO SCH (05:03)
[2017-06-11 05:40] LABS: BASOPHILS # (AUTO) 0.01 10*3/UL; BASOPHILS % (AUTO) 0.2 % (0-1); EOSINOPHILS # (AUTO) 0.39 10*3/UL; EOSINOPHILS % (AUTO) 7.8 % (0-8); Hematocrit [HCT] 33.4 % (37.0-47.0); Hemoglobin [HGB] 11.2 g/dL (12.0-16.0); LYMPHOCYTES # (AUTO) 0.88 10*3/uL; MEAN CORPUSCULAR HEMOGLOBIN 30.3 PG (27-31); MEAN CORPUSCULAR HGB CONC 33.5 g/dL (33-37); MEAN CORPUSCULAR VOLUME 90.3 FL (81-99); MONOCYTES # (AUTO) 0.38 10*3/UL (0.3-0.8); MONOCYTES % (AUTO) 7.6 % (5-15); NEUTROPHILS # (AUTO) 3.34 10*3/UL; NEUTROPHILS % (AUTO) 66.8 % (50-80)
[2017-06-11 05:53] LABS: PLATELET MORPHOLOGY COMMENT NORMAL MORPHOLOGY (NORM); RBC MORPHOLOGY COMMENT NORMAL MORPHOLOGY (NORM); WBC MORPHOLOGY COMMENT NORMAL MORPHOLOGY (NORM)
[2017-06-11 06:00] LABS: BLOOD UREA NITROGEN 6 mg/dL (7-22)
[2017-06-11] MEDS: ISOSORBIDE MONONITRATE 30 MG SR 24H TABLET PO SCH (09:15)
[2017-06-11] MEDS: Montelukast Tab 10 MG TAB PO SCH (09:15)
[2017-06-11] MEDS: Amoxicill/Clav 875/125mg Tab 1 TAB TAB PO SCH ×2 (09:16→21:14)
[2017-06-11] MEDS: Calcium/Vit D 600mg/400u Tab 1 TAB TABLET PO SCH (09:16)
[2017-06-11] MEDS: CHOLECALCIFEROL 1000 IU TABLET PO SCH (09:16)
[2017-06-11] MEDS: ASPIRIN EC 81 MG TABLET PO SCH (09:17)
--- NOTE | 2017-06-11 10:41 | PT AM DAY ---
Diagnosis : Weakness AM - Physical Therapy S: The nursing staff reports the patient had an unrestful night and was medicated. We attempted to see the patient two times earlier in the morning; however, the patient was never appropriately aware. O: Following attempting to see the patient a few times in the morning, we were only able to perform the therapeutic exercises at bedside in an unsupported seated position: long arc quads, sit to stands, seated marching, and upper extremity red theraband exercises in all planes. We attempted to ambulate; however, the patient required constant tactile and verbal cues to stay on task. A: The patient performed poorly today; however, this was due to being medicated. P: Continue seeing patient BID during the week and one time per day over the weekend for transfers, ambulation, and range of motion/strengthening exercises. MTDD
--- NOTE | 2017-06-11 12:36 | PT AM DAY ---
Diagnosis : Weakness AM - Physical Therapy S: The patient reports she is agreeable to participate with physical therapy today. O: Today's therapy consisted of the patient ambulating all the way from her room downstairs to therapy with all wheeled walker, gait belt, and contact guard assistance. Down in the gym she performed therapeutic exercises and functional activities including NuStep, cycling, upper body ergometer, wall pulleys in all directions while standing, balance grid, hurdles, and box step ups. A: The patient did very well with her exercises today. Her ability to participate with exercises is directly related to her cognitive status as well as her willingness to participate. P: Continue seeing patient BID during the week and one time per day over the weekend for transfers, ambulation, and range of motion/strengthening exercises. BRI
[2017-06-11] MEDS: IBUPROFEN 800 MG TABLET PO PRN ×2 (12:51→19:01)
--- NOTE | 2017-06-11 14:42 | OT AM DAY ---
Diagnosis : Weakness AM - Occupational Therapy S: The patient states she does not feel like going downstairs. She states her stomach feels like it is cramping up all the time. O: The patient was seen in her room. She completed ADLs including dressing upper extremities independently. She required min assist to dress lower extremities. She completed hygiene at the sink for up to 5 minutes. Upon completion of activities, the patient was turned over to PT for treatment. A: The patient would continues to benefit from therapy to increase her overall function. She continues to be somewhat confused. We will continue to monitor the situation. P: Continue seeing patient BID during the week and one time per day over the weekend for upper extremity strengthening, ADLs, and overall functional mobility. THADDEUSD
--- NOTE | 2017-06-11 16:54 | PT.PROG ---
Progress Note Progress Note: S. Patient stated that she is feeling good, she wants to go home. O. Patient ambulated 300 feet around the nurses station then performed seated exercises in the form of; heel toe raises, marches, long arc quads, pillow squeezes, sit to stands, standing marches all x 20 bilaterally. Patient was left in the restroom and nursing was notified. A. Patient tolerated therapy fair, she continues to struggle with her balance and weakness however is making gains with mobility. Patient would continue to benefit from therapy at this time. P. continue POC.
--- NOTE | 2017-06-11 16:56 | PT.PROG ---
Progress Note Progress Note: S. Patient stated that she is not feeling well this morning and does not want to go to the therapy gym. O. Patient ambulated 300 feet around the nurses station then was left with OT for further therapy. A. Patient tolerated ambulation fair, she continues to be impulsive and ambulate very fast, she continues to be weak and would continue to benefit from skilled therapy at this time. P. Continue POC.
--- NOTE | 2017-06-11 20:23 | PDOC(PROG) ---
Date and Time of Service: 06/11/2017 2017 Interval History: Very complex situation today. The patient herself has no complaints of chest pain, shortness breath, nausea or vomiting. The patient scored 14 out of 30 on a slums evaluation. This is quite consistent with dementia and the patient had significant trouble in areas of cognitive ability and analysis of complex situations. She was not good with computation. Interestingly, she maintains orientation to date and time. She is not really in touch with what her medical issues are. I met her power of commercial litigation attorney, Angélica Camejo, yesterday. By all appearances yesterday, the patient's power of commercial litigation attorney seemed to have the patient's best interest in mind and felt the patient would be best served by consideration of at least 2 weeks of [facility] therapy. However, as we have found more out about the patient's power of commercial litigation attorney, it appears that Angélica Camejo does not have the patient's best interest in mind. She called quite belligerently, and screamed at the top of her lungs to both myself and our nurse, Verona Manning, as well as other staff members. She was very upset that the patient was not on oxygen despite the fact that the patient was on a room air saturation of 91-94%. I placed the patient on continuous oxygen and on room air have found her 91-98% throughout various checks on the monitor. Given these clinical findings, oxygen is not indicated. We will continue the continuous oxygen study through the night to see if the patient has nocturnal hypoxia. The patient's power of commercial litigation attorney, Angélica Camejo, was not only not understanding of this, she was absolutely belligerent regarding the situation and accused us administrating the patient. Friends of the patient have explained that Angélica Camejo is often verbally abusive to the patient. They also explained that they are not sure that there is a respect of financial considerations. In fact the patient's power of commercial litigation attorney was investigated by the Adult Protective Services in the past regarding her treatment of the patient. Apparently, the patient's power of commercial litigation attorney, Angélica Camejo, was reportedly not interested in helping the patient seek care for recent fall in which the patient fractured 2 ribs. She was fairly unconcerned according to the patient's friend, Brunilda. In fact, the patient's power of commercial litigation attorney was downright accusatory, according to Brunilda, that she was "faking the whole incident" with her fall that resulted in rib fractures earlier this year. Angélica Camejo, herself, stated that she felt the patient was demented, but she has not been attending physical exam visits in the outpatient setting with the patient to assist with care. Given all of this, and my concern that the patient is too cognitively impaired from her dementia despite being able to maintain conversation and having orientation to date and time, she has significant deficits in problem solving and cognitive tasks. The patient really required power of commercial litigation attorney that will represent the patient's interest best. We've contacted DFS to determine if Angélica Camejo is an adequate power of commercial litigation attorney and whether or not the patient has true decision-making capacity, i.e. whether or not she is incompetent to make decisions for herself in the matter of a pointing power of commercial litigation attorney. Is not safe to discharge this patient until we have this matter resolved from a social perspective. Objective : Data - Labs CBC and BMP: 06/11/17 05:15 06/11/17 05:15 Additional Lab Results: Laboratory Results 06/06/17 06/06/17 06/06/17 Range/Units 11:24 11:24 11:24 WBC 6.17 (4.8-10.8) 10^3/uL RBC 3.76 L (4.20-5.40) 10^6/uL Hgb 11.4 L (12.0-16.0) g/dL Hct 33.6 L (37.0-47.0) % MCV 89.4 (81-99) FL MCH 30.3 (27-31) PG MCHC 33.9 (33-37) g/dL RDW Std Deviation 37.9 L (39-50) fL RDW Coeff of [place] 12.0 (11.5-14.5) % Plt Count 286 (140-350) 10*3/uL MPV 9.5 (7.4-12.2) FL Immature Gran % (Auto) 0.2 (0-5) % Neut % (Auto) 81.8 H (50-80) % Lymph % (Auto) 11.0 (10-50) % [place] % (Auto) 5.8 (5-15) % Eos % (Auto) 1.0 (0-8) % Baso % (Auto) 0.2 (0-1) % Immature Gran # (Auto) 0.01 10*3/UL Neut # (Auto) 5.05 10*3/UL Lymph # (Auto) 0.68 10*3/uL [place] # (Auto) 0.36 (0.3-0.8) 10*3/UL Eos # (Auto) 0.06 10*3/UL Baso # (Auto) 0.01 10*3/UL WBC Morphology Comment Normal morphology (NORM) Plt Morphology Comment Normal morphology (NORM) RBC Morph Comment Normal morphology (NORM) Sodium (135-145) meq/L Potassium (3.8-5.2) meq/L Chloride (98-112) meq/L Carbon Dioxide (23-33) meq/L Anion Gap (5-20) BUN (7-22) mg/dL Creatinine (0.50-1.20) mg/dL BUN/Creatinine Ratio (6-20) Glucose (78-110) mg/dL Calculated Osmolality (267-292) mOsm/kg Lactic Acid 0.7 (0.70-2.10) MMOL/L Calcium (8.7-10.7) mg/dL Magnesium 1.7 (1.6-2.4) mg/dL Total Bilirubin (0.3-1.2) mg/dL AST (8-39) IU/L ALT (9-52) IU/L Alkaline Phosphatase (38-126) IU/L Troponin I (< 0.040) ng/mL Total Protein (6.1-8.0) g/dL Albumin (3.5-4.8) g/dL Globulin (2.50-4.10) g/dL Albumin/Globulin Ratio (1.3-2.0) mg/g Amylase (30-110) U/L Lipase (23-300) IU/L Vitamin B12 (239-931) pg/mL Serum Folate (2.76-20.0) NG/ML Ur Collection Type Cath specimen Urine Color Yellow (Y) Urine Clarity Clear (CLEAR) Urine pH 6.0 (5.0-8.5) Ur Specific [place] 1.010 (1.005-1.030) Urine Protein Negative (NEG) mg/dl Urine Glucose (UA) Negative (NEG) mg/dL Urine Ketones 15 (NEG) Urine Occult Blood Trace-intact H (NEG) Urine Nitrate Negative (NEG) Urine Bilirubin Negative (NEG) Urine Urobilinogen 0.2 (0.2) EU/dL Ur Leukocyte Esterase Negative (NEG) Urine RBC 1-3 (NONE) /hpf Urine WBC 10-15 (NONE) Ur Squamous Epith Cells None (NONE) Ur Renal Epithelial Cell Rare (NONE) Urine Crystals None Urine Bacteria Rare (NONE) Urine Casts None (NONE) Urine Mucus None (NONE) Urine Trichomonas None (NONE) Urine Yeast None (NONE) Ur Culture Indicated? Culture set 06/06/17 06/06/17 06/07/17 Range/Units 11:24 11:24 04:53 WBC 4.65 L (4.8-10.8) 10^3/uL RBC 3.43 L (4.20-5.40) 10^6/uL Hgb 10.5 L (12.0-16.0) g/dL Hct 30.8 L (37.0-47.0) % MCV 89.8 (81-99) FL MCH 30.6 (27-31) PG MCHC 34.1 (33-37) g/dL RDW Std Deviation 38.2 L (39-50) fL RDW Coeff of [place] 12.1 (11.5-14.5) % Plt Count 271 (140-350) 10*3/uL MPV 9.3 (7.4-12.2) FL Immature Gran % (Auto) 0.2 (0-5) % Neut % (Auto) 58.9 (50-80) % Lymph % (Auto) 27.1 (10-50) % [place] % (Auto) 8.2 (5-15) % Eos % (Auto) 5.2 (0-8) % Baso % (Auto) 0.4 (0-1) % Immature Gran # (Auto) 0.01 10*3/UL Neut # (Auto) 2.74 10*3/UL Lymph # (Auto) 1.26 10*3/uL [place] # (Auto) 0.38 (0.3-0.8) 10*3/UL Eos # (Auto) 0.24 10*3/UL Baso # (Auto) 0.02 10*3/UL WBC Morphology Comment Normal morphology (NORM) Plt Morphology Comment Normal morphology (NORM) RBC Morph Comment Normal morphology (NORM) Sodium 139 (135-145) meq/L Potassium 3.8 (3.8-5.2) meq/L Chloride 108 (98-112) meq/L Carbon Dioxide 22 L (23-33) meq/L Anion Gap 9 (5-20) BUN 10 (7-22) mg/dL Creatinine 0.5 (0.50-1.20) mg/dL BUN/Creatinine Ratio 20.00 (6-20) Glucose 105 (78-110) mg/dL Calculated Osmolality 286.0 (267-292) mOsm/kg Lactic Acid (0.70-2.10) MMOL/L Calcium 9.6 (8.7-10.7) mg/dL Magnesium (1.6-2.4) mg/dL Total Bilirubin 0.6 (0.3-1.2) mg/dL AST 33 (8-39) IU/L ALT 48 (9-52) IU/L Alkaline Phosphatase 88 (38-126) IU/L Troponin I (< 0.040) ng/mL Total Protein 6.0 L (6.1-8.0) g/dL Albumin 3.5 (3.5-4.8) g/dL Globulin 2.5 (2.50-4.10) g/dL Albumin/Globulin Ratio 1.40 (1.3-2.0) mg/g Amylase 41 (30-110) U/L Lipase 29 (23-300) IU/L Vitamin B12 (239-931) pg/mL Serum Folate (2.76-20.0) NG/ML Ur Collection Type Urine Color (Y) Urine Clarity (CLEAR) Urine pH (5.0-8.5) Ur Specific [place] (1.005-1.030) Urine Protein (NEG) mg/dl Urine Glucose (UA) (NEG) mg/dL Urine Ketones (NEG) Urine Occult Blood (NEG) Urine Nitrate (NEG) Urine Bilirubin (NEG) Urine Urobilinogen (0.2) EU/dL Ur Leukocyte Esterase (NEG) Urine RBC (NONE) /hpf Urine WBC (NONE) Ur Squamous Epith Cells (NONE) Ur Renal Epithelial Cell (NONE) Urine Crystals Urine Bacteria (NONE) Urine Casts (NONE) Urine Mucus (NONE) Urine Trichomonas (NONE) Urine Yeast (NONE) Ur Culture Indicated? 06/07/17 06/08/17 06/08/17 Range/Units 04:53 04:13 04:13 WBC 7.22 (4.8-10.8) 10^3/uL RBC 4.04 L (4.20-5.40) 10^6/uL Hgb 12.5 (12.0-16.0) g/dL Hct 36.1 L (37.0-47.0) % MCV 89.4 (81-99) FL MCH 30.9 (27-31) PG MCHC 34.6 (33-37) g/dL RDW Std Deviation 39.8 (39-50) fL RDW Coeff of [place]lin 12.4 (11.5-14.5) % Plt Count 277 (140-350) 10*3/uL MPV 9.5 (7.4-12.2) FL Immature Gran % (Auto) 0.1 (0-5) % Neut % (Auto) 72.2 (50-80) % Lymph % (Auto) 16.3 (10-50) % [place] % (Auto) 7.1 (5-15) % Eos % (Auto) 4.0 (0-8) % Baso % (Auto) 0.3 (0-1) % Immature Gran # (Auto) 0.01 10*3/UL Neut # (Auto) 5.21 10*3/UL Lymph # (Auto) 1.18 10*3/uL [place] # (Auto) 0.51 (0.3-0.8) 10*3/UL Eos # (Auto) 0.29 10*3/UL Baso # (Auto) 0.02 10*3/UL WBC Morphology Comment Normal morphology (NORM) Plt Morphology Comment Normal morphology (NORM) RBC Morph Comment Normal morphology (NORM) Sodium 142 139 (135-145) meq/L Potassium 2.9 L 4.1 D (3.8-5.2) meq/L Chloride 113 H 112 (98-112) meq/L Carbon Dioxide 23 20 L (23-33) meq/L Anion Gap 6 7 (5-20) BUN 8 6 L (7-22) mg/dL Creatinine 0.6 0.6 (0.50-1.20) mg/dL BUN/Creatinine Ratio 13.33 10.00 (6-20) Glucose 68 L 77 L (78-110) mg/dL Calculated Osmolality 289.0 284.0 (267-292) mOsm/kg Lactic Acid (0.70-2.10) MMOL/L Calcium 8.5 L 9.1 (8.7-10.7) mg/dL Magnesium (1.6-2.4) mg/dL Total Bilirubin 0.5 0.5 (0.3-1.2) mg/dL AST 25 26 (8-39) IU/L ALT 41 35 (9-52) IU/L Alkaline Phosphatase 63 72 (38-126) IU/L Troponin I (< 0.040) ng/mL Total Protein 5.3 L 5.3 L (6.1-8.0) g/dL Albumin 2.8 L 3.0 L (3.5-4.8) g/dL Globulin 2.5 2.3 L (2.50-4.10) g/dL Albumin/Globulin Ratio 1.10 L 1.30 (1.3-2.0) mg/g Amylase (30-110) U/L Lipase (23-300) IU/L Vitamin B12 (239-931) pg/mL Serum Folate (2.76-20.0) NG/ML Ur Collection Type Urine Color (Y) Urine Clarity (CLEAR) Urine pH (5.0-8.5) Ur Specific [place] (1.005-1.030) Urine Protein (NEG) mg/dl Urine Glucose (UA) (NEG) mg/dL Urine Ketones (NEG) Urine Occult Blood (NEG) Urine Nitrate (NEG) Urine Bilirubin (NEG) Urine Urobilinogen (0.2) EU/dL Ur Leukocyte Esterase (NEG) Urine RBC (NONE) /hpf Urine WBC (NONE) Ur Squamous Epith Cells (NONE) Ur Renal Epithelial Cell (NONE) Urine Crystals Urine Bacteria (NONE) Urine Casts (NONE) Urine Mucus (NONE) Urine Trichomonas (NONE) Urine Yeast (NONE) Ur Culture Indicated? 06/09/17 06/11/17 06/11/17 Range/Units 21:00 05:15 05:15 WBC 5.00 (4.8-10.8) 10^3/uL RBC 3.70 L (4.20-5.40) 10^6/uL Hgb 11.2 L (12.0-16.0) g/dL Hct 33.4 L (37.0-47.0) % MCV 90.3 (81-99) FL MCH 30.3 (27-31) PG MCHC 33.5 (33-37) g/dL RDW Std Deviation 39.4 (39-50) fL RDW Coeff of [place] 12.4 (11.5-14.5) % Plt Count 340 (140-350) 10*3/uL MPV 9.0 (7.4-12.2) FL Immature Gran % (Auto) 0 (0-5) % Neut % (Auto) 66.8 (50-80) % Lymph % (Auto) 17.6 (10-50) % [place] % (Auto) 7.6 (5-15) % Eos % (Auto) 7.8 (0-8) % Baso % (Auto) 0.2 (0-1) % Immature Gran # (Auto) 0 10*3/UL Neut # (Auto) 3.34 10*3/UL Lymph # (Auto) 0.88 10*3/uL [place] # (Auto) 0.38 (0.3-0.8) 10*3/UL Eos # (Auto) 0.39 10*3/UL Baso # (Auto) 0.01 10*3/UL WBC Morphology Comment Normal morphology (NORM) Plt Morphology Comment Normal morphology (NORM) RBC Morph Comment Normal morphology (NORM) Sodium (135-145) meq/L Potassium (3.8-5.2) meq/L Chloride (98-112) meq/L Carbon Dioxide (23-33) meq/L Anion Gap (5-20) BUN (7-22) mg/dL Creatinine (0.50-1.20) mg/dL BUN/Creatinine Ratio (6-20) Glucose (78-110) mg/dL Calculated Osmolality (267-292) mOsm/kg Lactic Acid (0.70-2.10) MMOL/L Calcium (8.7-10.7) mg/dL Magnesium (1.6-2.4) mg/dL Total Bilirubin (0.3-1.2) mg/dL AST (8-39) IU/L ALT (9-52) IU/L Alkaline Phosphatase (38-126) IU/L Troponin I < 0.012 (< 0.040) ng/mL Total Protein (6.1-8.0) g/dL Albumin (3.5-4.8) g/dL Globulin (2.50-4.10) g/dL Albumin/Globulin Ratio (1.3-2.0) mg/g Amylase (30-110) U/L Lipase (23-300) IU/L Vitamin B12 > 1000 H (239-931) pg/mL Serum Folate 19.0 (2.76-20.0) NG/ML Ur Collection Type Urine Color (Y) Urine Clarity (CLEAR) Urine pH (5.0-8.5) Ur Specific [place] (1.005-1.030) Urine Protein (NEG) mg/dl Urine Glucose (UA) (NEG) mg/dL Urine Ketones (NEG) Urine Occult Blood (NEG) Urine Nitrate (NEG) Urine Bilirubin (NEG) Urine Urobilinogen (0.2) EU/dL Ur Leukocyte Esterase (NEG) Urine RBC (NONE) /hpf Urine WBC (NONE) Ur Squamous Epith Cells (NONE) Ur Renal Epithelial Cell (NONE) Urine Crystals Urine Bacteria (NONE) Urine Casts (NONE) Urine Mucus (NONE) Urine Trichomonas (NONE) Urine Yeast (NONE) Ur Culture Indicated? 06/11/17 Range/Units 05:15 WBC (4.8-10.8) 10^3/uL RBC (4.20-5.40) 10^6/uL Hgb (12.0-16.0) g/dL Hct (37.0-47.0) % MCV (81-99) FL MCH (27-31) PG MCHC (33-37) g/dL RDW Std Deviation (39-50) fL RDW Coeff of [place] (11.5-14.5) % Plt Count (140-350) 10*3/uL MPV (7.4-12.2) FL Immature Gran % (Auto) (0-5) % Neut % (Auto) (50-80) % Lymph % (Auto) (10-50) % [place] % (Auto) (5-15) % Eos % (Auto) (0-8) % Baso % (Auto) (0-1) % Immature Gran # (Auto) 10*3/UL Neut # (Auto) 10*3/UL Lymph # (Auto) 10*3/uL [place] # (Auto) (0.3-0.8) 10*3/UL Eos # (Auto) 10*3/UL Baso # (Auto) 10*3/UL WBC Morphology Comment (NORM) Plt Morphology Comment (NORM) RBC Morph Comment (NORM) Sodium 136 (135-145) meq/L Potassium 4.3 (3.8-5.2) meq/L Chloride 105 (98-112) meq/L Carbon Dioxide 24 (23-33) meq/L Anion Gap 7 (5-20) BUN 6 L (7-22) mg/dL Creatinine 0.6 (0.50-1.20) mg/dL BUN/Creatinine Ratio 10.00 (6-20) Glucose 81 (78-110) mg/dL Calculated Osmolality 278.0 (267-292) mOsm/kg Lactic Acid (0.70-2.10) MMOL/L Calcium 9.2 (8.7-10.7) mg/dL Magnesium (1.6-2.4) mg/dL Total Bilirubin (0.3-1.2) mg/dL AST (8-39) IU/L ALT (9-52) IU/L Alkaline Phosphatase (38-126) IU/L Troponin I (< 0.040) ng/mL Total Protein (6.1-8.0) g/dL Albumin (3.5-4.8) g/dL Globulin (2.50-4.10) g/dL Albumin/Globulin Ratio (1.3-2.0) mg/g Amylase (30-110) U/L Lipase (23-300) IU/L Vitamin B12 (239-931) pg/mL Serum Folate (2.76-20.0) NG/ML Ur Collection Type Urine Color (Y) Urine Clarity (CLEAR) Urine pH (5.0-8.5) Ur Specific [place] (1.005-1.030) Urine Protein (NEG) mg/dl Urine Glucose (UA) (NEG) mg/dL Urine Ketones (NEG) Urine Occult Blood (NEG) Urine Nitrate (NEG) Urine Bilirubin (NEG) Urine Urobilinogen (0.2) EU/dL Ur Leukocyte Esterase (NEG) Urine RBC (NONE) /hpf Urine WBC (NONE) Ur Squamous Epith Cells (NONE) Ur Renal Epithelial Cell (NONE) Urine Crystals Urine Bacteria (NONE) Urine Casts (NONE) Urine Mucus (NONE) Urine Trichomonas (NONE) Urine Yeast (NONE) Ur Culture Indicated? Objective : Exam - General General Appearance: No Acute Distress, Cooperative Additional General Exam Details: Vital Signs (24 hrs) Temp Pulse Resp BP BP Pulse Ox 06/11/17 15:52 98.6 F 95 18 138/70 92 06/11/17 15:25 90 06/11/17 12:51 98.3 F 06/11/17 11:44 98.2 F 65 17 129/59 91 06/11/17 07:18 97 F 71 17 169/61 93 06/11/17 05:05 94 06/11/17 05:00 97.0 F 79 16 170/62 94 06/11/17 01:46 97.4 F 63 20 172/84 91 - Eye Eye Exam: No Scleral Icterus - ENT ENT Exam: Mucous Membranes Moist - Respiratory Respiratory Exam: Clear to Auscultation - Bilaterally, Breathing Non Labored - Cardiovascular Cardiovascular Exam: RRR, No Murmur, No Clicks, No Gallops, No Rubs, No JVD - GI/Abdominal GI/Abdominal Exam: Normal Bowel Sounds, Non Tender, Non Distended, Soft - Extremities Extremities Exam: No Clubbing Present, No Edema Present, No Cyanosis Present - Neurological Neurological Exam: Alert, No Facial Droop, Speech Intact / Clear, Moves All Extremities Equally Additional Neurological Exam Details: The patient is oriented to person and to time, but not to situation. Assessment and Plan - Patient Problems (1) Colitis Current Visit: Yes Status: Acute Code(s): K52.9 - Noninfective gastroenteritis and colitis, unspecified (2) Constipation Current Visit: Yes Status: Acute Code(s): K59.00 - Constipation, unspecified Qualifiers: Constipation type: drug induced constipation Qualified Code(s): K59.03 - Drug induced constipation (3) Rectal prolapse Current Visit: Yes Status: Acute Code(s): K62.3 - Rectal prolapse (4) Hypothyroidism Current Visit: Yes Status: Acute Code(s): E03.9 - Hypothyroidism, unspecified Qualifiers: Hypothyroidism type: acquired Qualified Code(s): E03.9 - Hypothyroidism, unspecified (5) CAD (coronary artery disease) Current Visit: Yes Status: Chronic Code(s): I25.10 - Atherosclerotic heart disease of [place] coronary artery without angina pectoris Qualifiers: Coronary Disease-Associated Artery/Lesion type: bypass graft [place] vs. transplanted heart: [place] heart Associated angina: without angina Qualified Code(s): I25.810 - Atherosclerosis of coronary artery bypass graft(s) without angina pectoris (6) Anxiety Current Visit: Yes Status: Acute Code(s): F41.9 - Anxiety disorder, unspecified (7) Cerebrovascular disease Current Visit: Yes Status: Acute Code(s): I67.9 - Cerebrovascular disease, unspecified (8) Hypertension Current Visit: Yes Status: Acute Code(s): I10 - Essential (primary) hypertension (9) Rib fractures Current Visit: No Status: Chronic Code(s): S22.39XA - Fracture of one rib, unspecified side, initial encounter for closed fracture Qualifiers: Encounter type: subsequent encounter Rib fracture type: single rib Fracture type: closed Laterality: right Fracture healing: with routine healing Qualified Code(s): S22.31XD - Fracture of one rib, right side, subsequent encounter for fracture with routine healing - Assessment / Plan Additional Assessment/Plan Details: This is a very complex situation socially. Although the patient's power of commercial litigation attorney, Angélica Camejo, and myself are in agreement that the patient needs [facility], I think Angélica Camejo has demonstrated behaviors that are not consistent with somebody who is truly advocating for this patient. The patient has dementia to a degree that I am not sure she is truly competent to make a decision regarding a power of commercial litigation attorney appointment at this time. Given that, we approached opening a DFS case as mentioned above in the treatment present illness. In terms of medical issues, the patient remains quite hypertensive at times, and I will add lisinopril as I've already added Norvasc. For her coronary artery disease and cerebrovascular disease, she will remain on aspirin. 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 I'm doing continuous pulse oximetry to determine whether or not the patient might be intermittently hypoxic. She has not demonstrated that to this point today. I will note that the patient's power of commercial litigation attorney Angélica Camejo, who was formerly a nurse, stated that she felt that the oxygen requirement for the patient was best seen in the patient's anxiousness in phone calls made to Angélica Camejo. Angélica stated to me that she felt the patient's phone volume increased when she was not on oxygen. Clinically, I did not see any difference in this patient on oxygen or off of it. She merely titrated off of oxygen and is satting fine on room air without extra intervention. Tubes can be very confusing to patients with dementia as well. The patient states that some he told her she had fibrosis. I did not see this in her clinic notes on review of her medical record. I will do a CT scan of the chest tomorrow to follow up on a pleural effusion noted on admission chest x -ray. In addition hopefully this will help glean whether or not the patient has pulmonary fibrosis. If this is the case, Pristiq is known to cause pulmonary fibrosis as well as worsen it, and we will have to consider changing her antidepressant medication. Eventually, the patient would benefit from long-term facility placement due to her dementia. I will recheck this test off of some of the centrally acting agents to see if there is any improvement.
[2017-06-11] MEDS ORDERED: DESVENLAFAXINE SUCCINATE 100 MG PO ONE (21:00)
[2017-06-11] MEDS: DESVENLAFAXINE SUCCINATE PO SCH (21:14)
[2017-06-12] MEDS: LEVOTHYROXINE 125 MCG TABLET PO SCH (05:24)
[2017-06-12] MEDS: LISINOPRIL 20 MG TABLET PO SCH (08:36)
[2017-06-12] MEDS: Calcium/Vit D 600mg/400u Tab 1 TAB TABLET PO SCH (08:36)
[2017-06-12] MEDS: Montelukast Tab 10 MG TAB PO SCH (08:36)
[2017-06-12] MEDS: Amoxicill/Clav 875/125mg Tab 1 TAB TAB PO SCH ×2 (08:36→20:18)
[2017-06-12] MEDS: CHOLECALCIFEROL 1000 IU TABLET PO SCH (08:36)
[2017-06-12] MEDS: ISOSORBIDE MONONITRATE 30 MG SR 24H TABLET PO SCH (08:36)
[2017-06-12] MEDS: ASPIRIN EC 81 MG TABLET PO SCH (08:36)
[2017-06-12] MEDS: IBUPROFEN 800 MG TABLET PO PRN ×2 (08:43→22:44)
--- NOTE | 2017-06-12 10:45 | OT PM DAY ---
Diagnosis : Weakness PM - Occupational Therapy S: The patient reports she does not want to go downstairs. O: Today we worked with the patient in her room. She performed upper extremity strengthening activities including yellow theraband horizontal abduction, biceps curls, internal/external rotation, shoulder extension, shoulder flexion, and wrist pronation/supination. A: The patient still demonstrates some confusion and memory difficulties but did participate with verbal cues. P: Continue seeing patient BID during the week and one time per day over the weekend for upper extremity strengthening, ADLs, and overall functional mobility. [email or web address]
--- NOTE | 2017-06-12 11:12 | PDOC(PROG) ---
Date and Time of Service: 06/12/2017, 1110 Interval History: No chest pain and no trouble breathing. Patient is less confused today. She did very well on her MOCA exam. The patient did much better on competitions and had improved cognitive processes, but definitely needs a higher level of care, either assisted living or group home based on the study. That being said, I do believe the patient is competent to make her own decisions regarding her power of compliance attorney. I spoke with the patient's counselor, Jade, and she believed the same thing about the patient. The patient voiced to me today that she does not think that her current power of compliance attorney, Angélica Camejo, represents her adequately in all aspects of care, and she would like to change her power compliance attorney to her friend, Brunilda, and so I will discuss with social services director today. In terms of physical complaints, the patient states that her ribs are sore but he packs of and really helping. Objective : Data - Labs CBC and BMP: 06/11/17 05:15 06/11/17 05:15 Objective : Exam - General General Appearance: No Acute Distress, Cooperative Additional General Exam Details: Vital Signs - Last Taken Temperature 97.3 F 06/12/17 09:00 Pulse Rate 74 06/12/17 09:00 Respiratory Rate 18 06/12/17 09:00 Blood Pressure 134/55 06/12/17 09:00 Pulse Ox 95 06/12/17 09:00 - Eye Eye Exam: No Scleral Icterus - ENT ENT Exam: Mucous Membranes Moist - Respiratory Respiratory Exam: Clear to Auscultation - Bilaterally, Breathing Non Labored - Cardiovascular Cardiovascular Exam: RRR, No Murmur, No Clicks, No Gallops, No Rubs, No JVD - Extremities Extremities Exam: No Clubbing Present, No Edema Present, No Cyanosis Present - Neurological Neurological Exam: Alert, Oriented x 3 (Significantly improved today.), No Facial Droop, Speech Intact / Clear, Moves All Extremities Equally - Psychiatric Psychiatric Exam: Normal Affect, Normal Mood Assessment and Plan - Patient Problems (1) Colitis Current Visit: Yes Status: Acute Code(s): K52.9 - Noninfective gastroenteritis and colitis, unspecified (2) Constipation Current Visit: Yes Status: Acute Code(s): K59.00 - Constipation, unspecified Qualifiers: Constipation type: drug induced constipation Qualified Code(s): K59.03 - Drug induced constipation (3) Rectal prolapse Current Visit: Yes Status: Acute Code(s): K62.3 - Rectal prolapse (4) Hypothyroidism Current Visit: Yes Status: Acute Code(s): E03.9 - Hypothyroidism, unspecified Qualifiers: Hypothyroidism type: acquired Qualified Code(s): E03.9 - Hypothyroidism, unspecified (5) CAD (coronary artery disease) Current Visit: Yes Status: Chronic Code(s): I25.10 - Atherosclerotic heart disease of [place] coronary artery without angina pectoris Qualifiers: Coronary Disease-Associated Artery/Lesion type: bypass graft [place] vs. transplanted heart: [place] heart Associated angina: without angina Qualified Code(s): I25.810 - Atherosclerosis of coronary artery bypass graft(s) without angina pectoris (6) Anxiety Current Visit: Yes Status: Acute Code(s): F41.9 - Anxiety disorder, unspecified (7) Cerebrovascular disease Current Visit: Yes Status: Acute Code(s): I67.9 - Cerebrovascular disease, unspecified (8) Hypertension Current Visit: Yes Status: Acute Code(s): I10 - Essential (primary) hypertension (9) Rib fractures Current Visit: No Status: Chronic Code(s): S22.39XA - Fracture of one rib, unspecified side, initial encounter for closed fracture Qualifiers: Encounter type: subsequent encounter Rib fracture type: single rib Fracture type: closed Laterality: right Fracture healing: with routine healing Qualified Code(s): S22.31XD - Fracture of one rib, right side, subsequent encounter for fracture with routine healing - Assessment / Plan Additional Assessment/Plan Details: After discontinuing several centrally acting medications, we are seeing some improvements in mental state examinations. 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 That being said, she seems to have improved cognitive awareness off of centrally acting agents, and I think she is capable of determining aspects of her care such as her power of compliance attorney, and she would probably be able to understand risks and benefits of elective procedures as well. The patient told me today that she wants to change her power of compliance attorney to her friend, Brunilda, because she thinks that and I will help her with her medical decisions to a better degree than Angélica Camejo. She stated this to me with witness, Vianca from occupational therapy, in the room. Given that, we know the patient struggles with medication administration, and she is likely not safe to administer her own medications. She probably needs assistance with that on a day-to-day basis, and at a minimum would be best served by assisted living. In terms of her other issues of medical care, get CT scan today to look for possible pulmonary fibrosis. Continue Augmentin for diverticulitis. Antihypertensives for hypertension. Nocturnal pulse oximetry study did not reveal any hypoxia, at least during the day, but she may be getting somewhat hypoxic at night and did require 1 L in the later parts of the evening. I may prescribe 2 L of oxygen at night.
--- NOTE | 2017-06-12 12:57 | DI ---
CT CHEST SCAN WITHOUT IV CONTRAST, 06/12/2017 7:00 AM : Clinical History: Pleural effusion. History of pulmonary fibrosis. Previous Exam: None at this facility. Scans are performed from the base of the neck to the lower lung bases without IV contrast. Sagittal a nd coronal images using non MIPS and MIPS technique are generated. The base of the neck and thoracic inlet are normal. There are no abnormal axillary, supraclavicular, mediastinal, or hilar nodes. There is cardiomegaly and the patient is status post CABG. There is a sm all right pleural effusion with right lower lobe atelectasis. No acute infiltrates are present and th ere is no definite evidence of pulmonary fibrosis. There is a 3 mm noncalcified nodule located in the posterior portion of the posterior segment of the right upper lobe. Based on the 2017 Fleisch[employer] [place] [employer] guidelines, no followup is required if this patient is considered to be of low risk for dev eloping lung cancer. If the patient is considered to be high-risk, then it is optional to have a foll owup noncontrast CT scan in one year. READIN. Small right pleural effusion with mild right lower lobe atelectasis. 2. There is no evidence of pulmonary fibrosis. 3. Cardiomegaly. 4. There is a 3 mm noncalcified nodule in the posterior segment of the right upper lobe. No followup is required if the patient is of low risk for developing lung cancer. Optionally, a one-year followu p CT scan of the chest without IV contrast can be performed if the patient is considered high-risk fo r developing lung cancer.
--- NOTE | 2017-06-12 17:22 | PT.PROG ---
Progress Note Progress Note: S. Patient stated that she is feeling better overall. O. Patient ambulated 175 feet to the therapy gym with multiple right and left hand turns to assess her balance. Patient was left with OT for further therapy then ambulated 175 feet back to her room where she was left in her chair with alarm and call light. A. Patient tolerated therapy well today, she continues to make gains with mobility and endurance. she continues to have slight balance deficits however decreased compared to previous treatments. P. Continue POC.
--- NOTE | 2017-06-12 17:23 | PT.PROG ---
Progress Note Progress Note: S. Patient stated that she is feeling good this afternoon. O. Patient ambulated 600 feet around the nurses station then performed seated exercises in the form of; heel toe raises, marches, long arc quads, pillow squeezes, sit to stands, standing marches all x 20 bilaterally. Patient was left in chair with alarm and call light. A. Patient tolerated therapy well, she continues to have slight balance and weakness deficits however is making gains with mobility. Patient would continue to benefit from therapy at this time. P. continue POC.
[2017-06-12] MEDS: DESVENLAFAXINE SUCCINATE PO SCH (20:18)
[2017-06-12] MEDS ORDERED: DESVENLAFAXINE SUCCINATE 100 MG PO ONE (21:00)
[2017-06-13] MEDS: CALCIUM CARBONATE 500 MG (TUMS) CHEWABLE TABLET PO PRN (02:08)
[2017-06-13] MEDS: LEVOTHYROXINE 125 MCG TABLET PO SCH (07:02)
[2017-06-13] MEDS: Calcium/Vit D 600mg/400u Tab 1 TAB TABLET PO SCH (09:21)
[2017-06-13] MEDS: LISINOPRIL 20 MG TABLET PO SCH (09:21)
[2017-06-13] MEDS: ISOSORBIDE MONONITRATE 30 MG SR 24H TABLET PO SCH (09:21)
[2017-06-13] MEDS: Amoxicill/Clav 875/125mg Tab 1 TAB TAB PO SCH ×2 (09:21→20:54)
[2017-06-13] MEDS: Montelukast Tab 10 MG TAB PO SCH (09:21)
[2017-06-13] MEDS: CHOLECALCIFEROL 1000 IU TABLET PO SCH (09:21)
[2017-06-13] MEDS: ASPIRIN EC 81 MG TABLET PO SCH (09:21)
--- NOTE | 2017-06-13 10:48 | OT.PROG ---
Progress Note Progress Note: S: pt states that she thinks she is ready to go home. O: Attended CC today and was accompanied by nursing, D/c land planner, [employer] and a friend who accompanied pt. Pt then completed ADL's donning/doffing of UE/LE and completed activity Ind. She then transferred to toilet Ind and completed all toileting INd. She also completed hygiene at sink for up to 5 min. She transferred downstairs with walker and SBA for safety. She sat on EOB and completed UE exercises with RTB in rows, bicep flex, shoulder ext, bicep flex, 2# dumbbell in shoulder press and bicep flex x20 with BUe's. PT took over tx at this point. A: pt may continue to benefit from therapy to increase balance during ambulation. Upon d/c pt would benefit from some one who can check in on a daily basis to ensure safety. She may also need supervision during bathing activities. P: continue per POC.
--- NOTE | 2017-06-13 11:36 | PT.PROG ---
Progress Note Progress Note: S. Patient stated that she is feeling good this morning. O. Patient ambulated 175 feet to the therapy gym where she performed exercises in the form of; long arc quads, heel toe raises, marches, ball squeezes, clam shells, resisted knee flexion all with 2# and Red theraband. Patient performed sit to stands x 10 then ambulated 175 feet back to her room where she was left in her chair with alarm and call light. A. Patient tolerated therapy well this morning, she continues to struggle with balance. Patient appeared a little more confused this morning compared to previous treatments. Patient would continue to benefit from skilled therapy at this time. P. Continue POC.
--- NOTE | 2017-06-13 16:40 | OT.PROG ---
Progress Note Progress Note: S: pt states that she wants a shower today, and that she has a friend coming to visit her. O: pt was seen in her room in the pm. completing transfer with walker entire way to therapy. she completed 6 min on Ue bike to increase activity tolerance. She then transferred to mat table and completed x10 sit to stands with 2#. She then completed balance activity on air ex passing ball back and forth to challenge her balance. She then stepped off of air ex and only passing ball back and forth stepping with L and R leg. During balance activity pt needed x1 min A to prevent fall. pt also completed UE exercises with GTb in rows, bicep flex, shoulder ext x15 with BUE's. Pt was then transferred to step. Pt completed transfer Ind with walker upstairs and nursing took pt for shower. A: pt continues to have some rib pain. She participates well and completes most ADL's Ind. She does become somewhat confused at times. P: continue PEr POC.
--- NOTE | 2017-06-13 17:06 | PT.PROG ---
Progress Note Progress Note: S. Patient stated that she is feeling good this afternoon. O. Patient ambulated 175 feet to the therapy gym where she used the nu-step x5 minutes then performed exercises in the form of; Marches, long arc quad with hold 2x30 seconds. Patient ambulated 175 feet back to her room where she was left in her chair with alarm and call light. A. Patient tolerated therapy well, she continues to be impulsive and have slight balance deficits however is making gains overall. Patient would continue to benefit from skilled therapy at this time. P. Continue POC.
[2017-06-13] MEDS: IBUPROFEN 800 MG TABLET PO PRN (19:09)
--- NOTE | 2017-06-13 20:15 | PDOC(PROG) ---
Date and Time of Service: 06/13/2017, 1330 Interval History: No chest pain, shortness breath, nausea or vomiting. Patient's abdomen feels significantly better. She's not complaining of rib pain. I spoke with Brunilda, her power of associate attorney, and nephrology social worker, Joycelyn, and the plan for this patient is to try and obtain nursing care for her at home to help with medications and showers. Once that is in place, we feel that we can discharge this patient home, possibly with outpatient therapy as well. I did discuss the CT scan results with the patient is well, and she wonders if maybe this is all congestive heart failure. I offered her thoracentesis, but the patient refuses that procedure. Objective : Data - Labs CBC and BMP: 06/11/17 05:15 06/11/17 05:15 - Imaging CT Scan Status: Image Reviewed by Me (CT scan of the chest shows a right-sided pleural effusion that appears somewhat small. Chest x-ray from admission shows small right-sided pleural effusion and cardiomegaly.) Objective : Exam - General General Appearance: No Acute Distress, Cooperative Additional General Exam Details: Vital Signs (24 hrs) Temp Pulse Resp BP Pulse Ox 06/13/17 19:00 99 06/13/17 16:51 97.4 F 77 16 144/70 93 06/13/17 15:00 95 06/13/17 11:08 97.8 F 69 18 126/53 97 06/13/17 11:00 97 06/13/17 08:39 97.8 F 82 16 178/84 94 06/13/17 07:00 93 06/13/17 05:25 91 06/13/17 04:20 97.5 F 77 20 152/59 97 06/13/17 03:00 99 06/13/17 00:22 97.3 F 73 20 168/75 98 06/12/17 22:54 99 06/12/17 21:00 97.6 F 76 20 125/48 99 - Head Head Exam: Normal Inspection, Normocephalic, Atraumatic - Eye Eye Exam: No Scleral Icterus - ENT ENT Exam: Mucous Membranes Moist - Respiratory Respiratory Exam: Clear to Auscultation - Bilaterally, Breathing Non Labored - Cardiovascular Cardiovascular Exam: RRR, No Murmur, No Clicks, No Gallops, No Rubs, No JVD - GI/Abdominal GI/Abdominal Exam: Normal Bowel Sounds, Non Tender, Non Distended, Soft - Extremities Extremities Exam: No Clubbing Present, No Edema Present, No Cyanosis Present - Neurological Neurological Exam: Alert, Oriented x 3 (Oriented to person, place, time.), No Facial Droop, Speech Intact / Clear, Moves All Extremities Equally - Psychiatric Psychiatric Exam: Normal Affect, Normal Mood Assessment and Plan - Patient Problems (1) Colitis Current Visit: Yes Status: Acute Code(s): K52.9 - Noninfective gastroenteritis and colitis, unspecified (2) Constipation Current Visit: Yes Status: Acute Code(s): K59.00 - Constipation, unspecified Qualifiers: Constipation type: drug induced constipation Qualified Code(s): K59.03 - Drug induced constipation (3) Rectal prolapse Current Visit: Yes Status: Acute Code(s): K62.3 - Rectal prolapse (4) Hypothyroidism Current Visit: Yes Status: Acute Code(s): E03.9 - Hypothyroidism, unspecified Qualifiers: Hypothyroidism type: acquired Qualified Code(s): E03.9 - Hypothyroidism, unspecified (5) CAD (coronary artery disease) Current Visit: Yes Status: Chronic Code(s): I25.10 - Atherosclerotic heart disease of [place] coronary artery without angina pectoris Qualifiers: Coronary Disease-Associated Artery/Lesion type: bypass graft [place] vs. transplanted heart: [place] heart Associated angina: without angina Qualified Code(s): I25.810 - Atherosclerosis of coronary artery bypass graft(s) without angina pectoris (6) Anxiety Current Visit: Yes Status: Acute Code(s): F41.9 - Anxiety disorder, unspecified (7) Cerebrovascular disease Current Visit: Yes Status: Acute Code(s): I67.9 - Cerebrovascular disease, unspecified (8) Hypertension Current Visit: Yes Status: Acute Code(s): I10 - Essential (primary) hypertension (9) Rib fractures Current Visit: No Status: Chronic Code(s): S22.39XA - Fracture of one rib, unspecified side, initial encounter for closed fracture Qualifiers: Encounter type: subsequent encounter Rib fracture type: single rib Fracture type: closed Laterality: right Fracture healing: with routine healing Qualified Code(s): S22.31XD - Fracture of one rib, right side, subsequent encounter for fracture with routine healing - Assessment / Plan Additional Assessment/Plan Details: Upon review of the CT scan, and the recent chest x-ray, I think that we are dealing with a patient that has rib fractures with a small right-sided pleural effusion on that side. I do not think this is fuels sales representative of congestive heart failure. I will check a BNP. I will also recheck an echocardiogram. The patient had a stress test done in 2014 that showed normal pump function according to my review of the medical record from the clinic. I think we have to be very careful with this patient to avoid polypharmacy. Stop Lasix and potassium and keep the patient off of these medications if possible. The patient has not had any evidence of hypoxia and may not require oxygen. I am not noticing any hypoxia overnight and the 24-hour review of vital signs shows old oxygen saturations above 91%. I agree wholeheartedly with the patient's power of associate attorney and social work therapist that the patient would benefit from medication administration help and also from some assistance with showers as well. She may benefit from outpatient physical therapy to continue. Hopefully we can get these things and line in the next 1-2 days and then discharge the patient home. Continue Augmentin for now for colitis. It is still very difficult for me to tell whether or not this was a true colitis or some inflammation from overt constipation.
[2017-06-13] MEDS ORDERED: diphenhydrAMINE 25 MG CAPSULE PO ONE (20:29)
[2017-06-13] MEDS ORDERED: ACETAMINOPHEN 325 MG TABLET PO ONE (20:30)
[2017-06-13] MEDS ORDERED: DESVENLAFAXINE SUCCINATE 100 MG PO ONE (21:00)
[2017-06-14] MEDS: LEVOTHYROXINE 125 MCG TABLET PO SCH (04:52)
[2017-06-14] MEDS ORDERED: FUROSEMIDE 20 MG TABLET PO SCH (07:00)
[2017-06-14] MEDS ORDERED: DESVENLAFAXINE 100 MG PO SCH ×2 (09:00→21:00)
[2017-06-14] MEDS ORDERED: Potassium Chloride Tab 10 MEQ TAB PO SCH (09:00)
[2017-06-14] MEDS: ASPIRIN EC 81 MG TABLET PO SCH (09:03)
[2017-06-14] MEDS: CHOLECALCIFEROL 1000 IU TABLET PO SCH (09:03)
[2017-06-14] MEDS: Montelukast Tab 10 MG TAB PO SCH (09:03)
[2017-06-14] MEDS: Calcium/Vit D 600mg/400u Tab 1 TAB TABLET PO SCH (09:03)
[2017-06-14] MEDS: LISINOPRIL 20 MG TABLET PO SCH (09:03)
[2017-06-14] MEDS: IBUPROFEN 800 MG TABLET PO PRN (09:04)
[2017-06-14] MEDS: ISOSORBIDE MONONITRATE 30 MG SR 24H TABLET PO SCH (09:04)
[2017-06-14] MEDS: Amoxicill/Clav 875/125mg Tab 1 TAB TAB PO SCH ×2 (09:04→20:16)
--- NOTE | 2017-06-14 11:47 | OT.PROG ---
Progress Note Progress Note: S: pt states that her parul did not bring her any cloths. She doesn't believe she is going home until next week. O: pt was seen in her room in the a.m. She completed UE/LE dressing Ind. she completed transfer to sink and completed hygiene Ind. She transferred downstairs 175 ft with walker INd. She completed 6 min On nu Step to increase activity tolerance. She then transferred to EOB completing UE exercises with RTB in all planes x 15. She also completed x10 sit to stands with 2# and x10 with 4# to increase LE strength and balance. Pt then completed PT portion of therapy. PT returned her to her room. A: pt needs subtle vc's to stay on task and completed simple ADL activity. She does lose her balance at times, so beneficial to maintain CGA to decrease chance of falls. Awaiting for more information on home health to get set up before d/c. P: continue per POC.
--- NOTE | 2017-06-14 11:54 | PT.PROG ---
Progress Note Progress Note: S. Patient stated that she is tired this morning. O. Patient ambulated 175 feet to the therapy gym where she performed standing balance exercises with Airex 2x3 minutes, sit to stands, marches, heel toe raises, ball squeezes, clamshells, resisted knee flexion all x 15 bilaterally. Patient ambulated 175 feet back to her room where she was left in her chair with alarm and call light. A. Patient tolerated therapy well this morning. She continues to have balance deficits and weakness, she would continue to benefit from skilled therapy at this time. P. Continue POC.
--- NOTE | 2017-06-14 15:20 | OT AM DAY ---
Diagnosis : Weakness AM - Occupational Therapy S: The patient reports she wants to get back to her apartment. She stated she was willing to complete the Cognitive Performance Test today. O: The patient completed the Cognitive Performance Test Medication: The patient scored 4.5/6.0. She had difficulty with the fourth medication and following instructions on the medication label. The patient was able to complete the first medication correctly. She knew how a PRN medication worked. She did need cues to follow the directions on the label for the third medication. And she had difficulty figuring out the fourth medication and how to put it in the pill box. Shopping: The patient scored 5.0/6.0. She needed increased time in order to figure out the money. She also needed cues to look at the bottom set of the gloves. She was able to make correct change. Washing: The patient scored 4.5/5.0. She needed a verbal cue to get to the sink and was able to follow directions after that. [place]: The patient scored 4.0/5.0. She needed a verbal cue to plug the toaster in and then was able to complete the task. Phone: The patient scored 4.5 out of 5.0. She was able to look up the number but needed increased time to do so. A: Overall the patient scored a 4.6. This places her as living alone but with daily assistance which is basically like an assisted living facility. Per her functional difficulties that are being stated through her counselors as well as reports from Anders James, it is recommended that the patient find more assistance to be as safe as possible. At this point her counselor has stated that her medications are being found throughout her home and she is having difficulty initiating taking the pills and medications when she is supposed to do so throughout the day. P: Continue seeing patient BID during the week and one time per day over the weekend for upper extremity strengthening, ADLs, and overall functional mobility. BRI
--- NOTE | 2017-06-14 16:42 | PT.PROG ---
Progress Note Progress Note: S. Patient stated that she is feeling good today. O. Patient ambulated 175 feet to the therapy gym where she used the nu-step x 10 minutes then performed seated exercises in the form of; long arc quads, heel toe raises, marches, sit to stands all x 15. Standing balance with Airex 2x3 minutes, marches on airex 2x 30 seconds, Patient was left with OT for further therapy then ambulated 175 feet back to her room where she was left in her chair with alarm and call light. A. Patient stated that she really enjoys therapy, she questioned multiple times how she can come in when she is not in the hospital. Patient continues to have balance deficits and is impulsive when ambulating however is gaining strength and endurance. Patient would continue to benefit from skilled therapy at this time. P. Continue POC.
--- NOTE | 2017-06-14 17:30 | PDOC(PROG) ---
Date and Time of Service: 06/14/2017, 1728 Interval History: no chest pain, shortness of breath, nausea, or vomiting. ribs sore, but better. Objective : Data - Labs CBC and BMP: 06/11/17 05:15 06/11/17 05:15 Additional Lab Results: Laboratory Results 06/06/17 06/06/17 06/06/17 Range/Units 11:24 11:24 11:24 WBC 6.17 (4.8-10.8) 10^3/uL RBC 3.76 L (4.20-5.40) 10^6/uL Hgb 11.4 L (12.0-16.0) g/dL Hct 33.6 L (37.0-47.0) % MCV 89.4 (81-99) FL MCH 30.3 (27-31) PG MCHC 33.9 (33-37) g/dL RDW Std Deviation 37.9 L (39-50) fL RDW Coeff of [place]lin 12.0 (11.5-14.5) % Plt Count 286 (140-350) 10*3/uL MPV 9.5 (7.4-12.2) FL Immature Gran % (Auto) 0.2 (0-5) % Neut % (Auto) 81.8 H (50-80) % Lymph % (Auto) 11.0 (10-50) % [place] % (Auto) 5.8 (5-15) % Eos % (Auto) 1.0 (0-8) % Baso % (Auto) 0.2 (0-1) % Immature Gran # (Auto) 0.01 10*3/UL Neut # (Auto) 5.05 10*3/UL Lymph # (Auto) 0.68 10*3/uL [place] # (Auto) 0.36 (0.3-0.8) 10*3/UL Eos # (Auto) 0.06 10*3/UL Baso # (Auto) 0.01 10*3/UL WBC Morphology Comment Normal morphology (NORM) Plt Morphology Comment Normal morphology (NORM) RBC Morph Comment Normal morphology (NORM) Sodium (135-145) meq/L Potassium (3.8-5.2) meq/L Chloride (98-112) meq/L Carbon Dioxide (23-33) meq/L Anion Gap (5-20) BUN (7-22) mg/dL Creatinine (0.50-1.20) mg/dL BUN/Creatinine Ratio (6-20) Glucose (78-110) mg/dL Calculated Osmolality (267-292) mOsm/kg Lactic Acid 0.7 (0.70-2.10) MMOL/L Calcium (8.7-10.7) mg/dL Magnesium 1.7 (1.6-2.4) mg/dL Total Bilirubin (0.3-1.2) mg/dL AST (8-39) IU/L ALT (9-52) IU/L Alkaline Phosphatase (38-126) IU/L Troponin I (< 0.040) ng/mL NT-Pro-B Natriuret Pep (0-125) PG/ML Total Protein (6.1-8.0) g/dL Albumin (3.5-4.8) g/dL Globulin (2.50-4.10) g/dL Albumin/Globulin Ratio (1.3-2.0) mg/g Amylase (30-110) U/L Lipase (23-300) IU/L Vitamin B12 (239-931) pg/mL Serum Folate (2.76-20.0) NG/ML Ur Collection Type Cath specimen Urine Color Yellow (Y) Urine Clarity Clear (CLEAR) Urine pH 6.0 (5.0-8.5) Ur Specific [place] 1.010 (1.005-1.030) Urine Protein Negative (NEG) mg/dl Urine Glucose (UA) Negative (NEG) mg/dL Urine Ketones 15 (NEG) Urine Occult Blood Trace-intact H (NEG) Urine Nitrate Negative (NEG) Urine Bilirubin Negative (NEG) Urine Urobilinogen 0.2 (0.2) EU/dL Ur Leukocyte Esterase Negative (NEG) Urine RBC 1-3 (NONE) /hpf Urine WBC 10-15 (NONE) Ur Squamous Epith Cells None (NONE) Ur Renal Epithelial Cell Rare (NONE) Urine Crystals None Urine Bacteria Rare (NONE) Urine Casts None (NONE) Urine Mucus None (NONE) Urine Trichomonas None (NONE) Urine Yeast None (NONE) Ur Culture Indicated? Culture set 06/06/17 06/06/17 06/07/17 Range/Units 11:24 11:24 04:53 WBC 4.65 L (4.8-10.8) 10^3/uL RBC 3.43 L (4.20-5.40) 10^6/uL Hgb 10.5 L (12.0-16.0) g/dL Hct 30.8 L (37.0-47.0) % MCV 89.8 (81-99) FL MCH 30.6 (27-31) PG MCHC 34.1 (33-37) g/dL RDW Std Deviation 38.2 L (39-50) fL RDW Coeff of [place] 12.1 (11.5-14.5) % Plt Count 271 (140-350) 10*3/uL MPV 9.3 (7.4-12.2) FL Immature Gran % (Auto) 0.2 (0-5) % Neut % (Auto) 58.9 (50-80) % Lymph % (Auto) 27.1 (10-50) % [place] % (Auto) 8.2 (5-15) % Eos % (Auto) 5.2 (0-8) % Baso % (Auto) 0.4 (0-1) % Immature Gran # (Auto) 0.01 10*3/UL Neut # (Auto) 2.74 10*3/UL Lymph # (Auto) 1.26 10*3/uL [place] # (Auto) 0.38 (0.3-0.8) 10*3/UL Eos # (Auto) 0.24 10*3/UL Baso # (Auto) 0.02 10*3/UL WBC Morphology Comment Normal morphology (NORM) Plt Morphology Comment Normal morphology (NORM) RBC Morph Comment Normal morphology (NORM) Sodium 139 (135-145) meq/L Potassium 3.8 (3.8-5.2) meq/L Chloride 108 (98-112) meq/L Carbon Dioxide 22 L (23-33) meq/L Anion Gap 9 (5-20) BUN 10 (7-22) mg/dL Creatinine 0.5 (0.50-1.20) mg/dL BUN/Creatinine Ratio 20.00 (6-20) Glucose 105 (78-110) mg/dL Calculated Osmolality 286.0 (267-292) mOsm/kg Lactic Acid (0.70-2.10) MMOL/L Calcium 9.6 (8.7-10.7) mg/dL Magnesium (1.6-2.4) mg/dL Total Bilirubin 0.6 (0.3-1.2) mg/dL AST 33 (8-39) IU/L ALT 48 (9-52) IU/L Alkaline Phosphatase 88 (38-126) IU/L Troponin I (< 0.040) ng/mL NT-Pro-B Natriuret Pep (0-125) PG/ML Total Protein 6.0 L (6.1-8.0) g/dL Albumin 3.5 (3.5-4.8) g/dL Globulin 2.5 (2.50-4.10) g/dL Albumin/Globulin Ratio 1.40 (1.3-2.0) mg/g Amylase 41 (30-110) U/L Lipase 29 (23-300) IU/L Vitamin B12 (239-931) pg/mL Serum Folate (2.76-20.0) NG/ML Ur Collection Type Urine Color (Y) Urine Clarity (CLEAR) Urine pH (5.0-8.5) Ur Specific Mobile (1.005-1.030) Urine Protein (NEG) mg/dl Urine Glucose (UA) (NEG) mg/dL Urine Ketones (NEG) Urine Occult Blood (NEG) Urine Nitrate (NEG) Urine Bilirubin (NEG) Urine Urobilinogen (0.2) EU/dL Ur Leukocyte Esterase (NEG) Urine RBC (NONE) /hpf Urine WBC (NONE) Ur Squamous Epith Cells (NONE) Ur Renal Epithelial Cell (NONE) Urine Crystals Urine Bacteria (NONE) Urine Casts (NONE) Urine Mucus (NONE) Urine Trichomonas (NONE) Urine Yeast (NONE) Ur Culture Indicated? 06/07/17 06/08/17 06/08/17 Range/Units 04:53 04:13 04:13 WBC 7.22 (4.8-10.8) 10^3/uL RBC 4.04 L (4.20-5.40) 10^6/uL Hgb 12.5 (12.0-16.0) g/dL Hct 36.1 L (37.0-47.0) % MCV 89.4 (81-99) FL MCH 30.9 (27-31) PG MCHC 34.6 (33-37) g/dL RDW Std Deviation 39.8 (39-50) fL RDW Coeff of [place]lin 12.4 (11.5-14.5) % Plt Count 277 (140-350) 10*3/uL MPV 9.5 (7.4-12.2) FL Immature Gran % (Auto) 0.1 (0-5) % Neut % (Auto) 72.2 (50-80) % Lymph % (Auto) 16.3 (10-50) % [place] % (Auto) 7.1 (5-15) % Eos % (Auto) 4.0 (0-8) % Baso % (Auto) 0.3 (0-1) % Immature Gran # (Auto) 0.01 10*3/UL Neut # (Auto) 5.21 10*3/UL Lymph # (Auto) 1.18 10*3/uL [place] # (Auto) 0.51 (0.3-0.8) 10*3/UL Eos # (Auto) 0.29 10*3/UL Baso # (Auto) 0.02 10*3/UL WBC Morphology Comment Normal morphology (NORM) Plt Morphology Comment Normal morphology (NORM) RBC Morph Comment Normal morphology (NORM) Sodium 142 139 (135-145) meq/L Potassium 2.9 L 4.1 D (3.8-5.2) meq/L Chloride 113 H 112 (98-112) meq/L Carbon Dioxide 23 20 L (23-33) meq/L Anion Gap 6 7 (5-20) BUN 8 6 L (7-22) mg/dL Creatinine 0.6 0.6 (0.50-1.20) mg/dL BUN/Creatinine Ratio 13.33 10.00 (6-20) Glucose 68 L 77 L (78-110) mg/dL Calculated Osmolality 289.0 284.0 (267-292) mOsm/kg Lactic Acid (0.70-2.10) MMOL/L Calcium 8.5 L 9.1 (8.7-10.7) mg/dL Magnesium (1.6-2.4) mg/dL Total Bilirubin 0.5 0.5 (0.3-1.2) mg/dL AST 25 26 (8-39) IU/L ALT 41 35 (9-52) IU/L Alkaline Phosphatase 63 72 (38-126) IU/L Troponin I (< 0.040) ng/mL NT-Pro-B Natriuret Pep (0-125) PG/ML Total Protein 5.3 L 5.3 L (6.1-8.0) g/dL Albumin 2.8 L 3.0 L (3.5-4.8) g/dL Globulin 2.5 2.3 L (2.50-4.10) g/dL Albumin/Globulin Ratio 1.10 L 1.30 (1.3-2.0) mg/g Amylase (30-110) U/L Lipase (23-300) IU/L Vitamin B12 (239-931) pg/mL Serum Folate (2.76-20.0) NG/ML Ur Collection Type Urine Color (Y) Urine Clarity (CLEAR) Urine pH (5.0-8.5) Ur Specific Mobile (1.005-1.030) Urine Protein (NEG) mg/dl Urine Glucose (UA) (NEG) mg/dL Urine Ketones (NEG) Urine Occult Blood (NEG) Urine Nitrate (NEG) Urine Bilirubin (NEG) Urine Urobilinogen (0.2) EU/dL Ur Leukocyte Esterase (NEG) Urine RBC (NONE) /hpf Urine WBC (NONE) Ur Squamous Epith Cells (NONE) Ur Renal Epithelial Cell (NONE) Urine Crystals Urine Bacteria (NONE) Urine Casts (NONE) Urine Mucus (NONE) Urine Trichomonas (NONE) Urine Yeast (NONE) Ur Culture Indicated? 06/09/17 06/11/17 06/11/17 Range/Units 21:00 05:15 05:15 WBC 5.00 (4.8-10.8) 10^3/uL RBC 3.70 L (4.20-5.40) 10^6/uL Hgb 11.2 L (12.0-16.0) g/dL Hct 33.4 L (37.0-47.0) % MCV 90.3 (81-99) FL MCH 30.3 (27-31) PG MCHC 33.5 (33-37) g/dL RDW Std Deviation 39.4 (39-50) fL RDW Coeff of Carlin 12.4 (11.5-14.5) % Plt Count 340 (140-350) 10*3/uL MPV 9.0 (7.4-12.2) FL Immature Gran % (Auto) 0 (0-5) % Neut % (Auto) 66.8 (50-80) % Lymph % (Auto) 17.6 (10-50) % [place] % (Auto) 7.6 (5-15) % Eos % (Auto) 7.8 (0-8) % Baso % (Auto) 0.2 (0-1) % Immature Gran # (Auto) 0 10*3/UL Neut # (Auto) 3.34 10*3/UL Lymph # (Auto) 0.88 10*3/uL [place] # (Auto) 0.38 (0.3-0.8) 10*3/UL Eos # (Auto) 0.39 10*3/UL Baso # (Auto) 0.01 10*3/UL WBC Morphology Comment Normal morphology (NORM) Plt Morphology Comment Normal morphology (NORM) RBC Morph Comment Normal morphology (NORM) Sodium (135-145) meq/L Potassium (3.8-5.2) meq/L Chloride (98-112) meq/L Carbon Dioxide (23-33) meq/L Anion Gap (5-20) BUN (7-22) mg/dL Creatinine (0.50-1.20) mg/dL BUN/Creatinine Ratio (6-20) Glucose (78-110) mg/dL Calculated Osmolality (267-292) mOsm/kg Lactic Acid (0.70-2.10) MMOL/L Calcium (8.7-10.7) mg/dL Magnesium (1.6-2.4) mg/dL Total Bilirubin (0.3-1.2) mg/dL AST (8-39) IU/L ALT (9-52) IU/L Alkaline Phosphatase (38-126) IU/L Troponin I < 0.012 (< 0.040) ng/mL NT-Pro-B Natriuret Pep (0-125) PG/ML Total Protein (6.1-8.0) g/dL Albumin (3.5-4.8) g/dL Globulin (2.50-4.10) g/dL Albumin/Globulin Ratio (1.3-2.0) mg/g Amylase (30-110) U/L Lipase (23-300) IU/L Vitamin B12 > 1000 H (239-931) pg/mL Serum Folate 19.0 (2.76-20.0) NG/ML Ur Collection Type Urine Color (Y) Urine Clarity (CLEAR) Urine pH (5.0-8.5) Ur Specific Mobile (1.005-1.030) Urine Protein (NEG) mg/dl Urine Glucose (UA) (NEG) mg/dL Urine Ketones (NEG) Urine Occult Blood (NEG) Urine Nitrate (NEG) Urine Bilirubin (NEG) Urine Urobilinogen (0.2) EU/dL Ur Leukocyte Esterase (NEG) Urine RBC (NONE) /hpf Urine WBC (NONE) Ur Squamous Epith Cells (NONE) Ur Renal Epithelial Cell (NONE) Urine Crystals Urine Bacteria (NONE) Urine Casts (NONE) Urine Mucus (NONE) Urine Trichomonas (NONE) Urine Yeast (NONE) Ur Culture Indicated? 06/11/17 06/14/17 Range/Units 05:15 04:43 WBC (4.8-10.8) 10^3/uL RBC (4.20-5.40) 10^6/uL Hgb (12.0-16.0) g/dL Hct (37.0-47.0) % MCV (81-99) FL MCH (27-31) PG MCHC (33-37) g/dL RDW Std Deviation (39-50) fL RDW Coeff of Carlin (11.5-14.5) % Plt Count (140-350) 10*3/uL MPV (7.4-12.2) FL Immature Gran % (Auto) (0-5) % Neut % (Auto) (50-80) % Lymph % (Auto) (10-50) % [place] % (Auto) (5-15) % Eos % (Auto) (0-8) % Baso % (Auto) (0-1) % Immature Gran # (Auto) 10*3/UL Neut # (Auto) 10*3/UL Lymph # (Auto) 10*3/uL [place] # (Auto) (0.3-0.8) 10*3/UL Eos # (Auto) 10*3/UL Baso # (Auto) 10*3/UL WBC Morphology Comment (NORM) Plt Morphology Comment (NORM) RBC Morph Comment (NORM) Sodium 136 (135-145) meq/L Potassium 4.3 (3.8-5.2) meq/L Chloride 105 (98-112) meq/L Carbon Dioxide 24 (23-33) meq/L Anion Gap 7 (5-20) BUN 6 L (7-22) mg/dL Creatinine 0.6 (0.50-1.20) mg/dL BUN/Creatinine Ratio 10.00 (6-20) Glucose 81 (78-110) mg/dL Calculated Osmolality 278.0 (267-292) mOsm/kg Lactic Acid (0.70-2.10) MMOL/L Calcium 9.2 (8.7-10.7) mg/dL Magnesium (1.6-2.4) mg/dL Total Bilirubin (0.3-1.2) mg/dL AST (8-39) IU/L ALT (9-52) IU/L Alkaline Phosphatase (38-126) IU/L Troponin I (< 0.040) ng/mL NT-Pro-B Natriuret Pep 259 H (0-125) PG/ML Total Protein (6.1-8.0) g/dL Albumin (3.5-4.8) g/dL Globulin (2.50-4.10) g/dL Albumin/Globulin Ratio (1.3-2.0) mg/g Amylase (30-110) U/L Lipase (23-300) IU/L Vitamin B12 (239-931) pg/mL Serum Folate (2.76-20.0) NG/ML Ur Collection Type Urine Color (Y) Urine Clarity (CLEAR) Urine pH (5.0-8.5) Ur Specific Mobile (1.005-1.030) Urine Protein (NEG) mg/dl Urine Glucose (UA) (NEG) mg/dL Urine Ketones (NEG) Urine Occult Blood (NEG) Urine Nitrate (NEG) Urine Bilirubin (NEG) Urine Urobilinogen (0.2) EU/dL Ur Leukocyte Esterase (NEG) Urine RBC (NONE) /hpf Urine WBC (NONE) Ur Squamous Epith Cells (NONE) Ur Renal Epithelial Cell (NONE) Urine Crystals Urine Bacteria (NONE) Urine Casts (NONE) Urine Mucus (NONE) Urine Trichomonas (NONE) Urine Yeast (NONE) Ur Culture Indicated? Objective : Exam - General General Appearance: No Acute Distress, Cooperative Additional General Exam Details: Vital Signs (24 hrs) Temp Pulse Pulse Resp BP Pulse Ox 06/14/17 16:15 98 F 76 18 138/61 91 06/14/17 15:00 95 06/14/17 12:51 98.4 F 76 18 128/62 94 06/14/17 11:00 94 06/14/17 09:01 93 06/14/17 08:59 97.8 F 74 20 161/67 93 06/14/17 07:00 74 06/14/17 04:46 97.8 F 64 16 150/66 96 06/14/17 03:00 98 06/13/17 23:00 95 06/13/17 21:00 97.6 F 74 20 122/50 93 06/13/17 19:00 99 - Eye Eye Exam: No Scleral Icterus - ENT ENT Exam: Mucous Membranes Moist - Respiratory Respiratory Exam: Clear to Auscultation - Bilaterally, Breathing Non Labored Additional Respiratory Exam Details: slight decrease in right base. - Cardiovascular Cardiovascular Exam: RRR, No Murmur, No Clicks, No Gallops, No Rubs, No JVD - GI/Abdominal GI/Abdominal Exam: Normal Bowel Sounds, Non Tender, Non Distended, Soft - Extremities Extremities Exam: No Clubbing Present, No Edema Present, No Cyanosis Present - Neurological Neurological Exam: Alert, No Facial Droop, Speech Intact / Clear, Moves All Extremities Equally Assessment and Plan - Patient Problems (1) Colitis Current Visit: Yes Status: Acute Code(s): K52.9 - Noninfective gastroenteritis and colitis, unspecified (2) Constipation Current Visit: Yes Status: Acute Code(s): K59.00 - Constipation, unspecified Qualifiers: Constipation type: drug induced constipation Qualified Code(s): K59.03 - Drug induced constipation (3) Rectal prolapse Current Visit: Yes Status: Acute Code(s): K62.3 - Rectal prolapse (4) Hypothyroidism Current Visit: Yes Status: Acute Code(s): E03.9 - Hypothyroidism, unspecified Qualifiers: Hypothyroidism type: acquired Qualified Code(s): E03.9 - Hypothyroidism, unspecified (5) CAD (coronary artery disease) Current Visit: Yes Status: Chronic Code(s): I25.10 - Atherosclerotic heart disease of [place] coronary artery without angina pectoris Qualifiers: Coronary Disease-Associated Artery/Lesion type: bypass graft [place] vs. transplanted heart: [place] heart Associated angina: without angina Qualified Code(s): I25.810 - Atherosclerosis of coronary artery bypass graft(s) without angina pectoris (6) Anxiety Current Visit: Yes Status: Acute Code(s): F41.9 - Anxiety disorder, unspecified (7) Cerebrovascular disease Current Visit: Yes Status: Acute Code(s): I67.9 - Cerebrovascular disease, unspecified (8) Hypertension Current Visit: Yes Status: Acute Code(s): I10 - Essential (primary) hypertension (9) Rib fractures Current Visit: No Status: Chronic Comment: small pleural effusion I think related to rib fractures--needs reimaged in about 3-4 weeks to ensure gone. Code(s): S22.39XA - Fracture of one rib, unspecified side, initial encounter for closed fracture Qualifiers: Encounter type: subsequent encounter Rib fracture type: single rib Fracture type: closed Laterality: right Fracture healing: with routine healing Qualified Code(s): S22.31XD - Fracture of one rib, right side, subsequent encounter for fracture with routine healing - Assessment / Plan Additional Assessment/Plan Details: reimage CXR in 3-4 weeks to ensure that effusion has resolved. I think related to rib fractures. ECHO with preliminary Ejection fraction of > 60% outpatient PT if possible simplified medication regimen (I reconciled today.) finish antibiotics for colitis tomorrow (day #10 tomorrow) home RN support for medication management and for baths/showers.
[2017-06-14] MEDS: CALCIUM CARBONATE 500 MG (TUMS) CHEWABLE TABLET PO PRN (23:08)
[2017-06-15] MEDS ORDERED: diphenhydrAMINE 25 MG CAPSULE PO ONE (00:25)
[2017-06-15] MEDS: IBUPROFEN 800 MG TABLET PO PRN ×2 (01:29→08:23)
[2017-06-15] MEDS: LEVOTHYROXINE 125 MCG TABLET PO SCH (05:28)
[2017-06-15] MEDS: Montelukast Tab 10 MG TAB PO SCH (08:22)
[2017-06-15] MEDS: Amoxicill/Clav 875/125mg Tab 1 TAB TAB PO SCH (08:23)
[2017-06-15] MEDS: Calcium/Vit D 600mg/400u Tab 1 TAB TABLET PO SCH (08:23)
[2017-06-15] MEDS: CHOLECALCIFEROL 1000 IU TABLET PO SCH (08:23)
[2017-06-15] MEDS: ISOSORBIDE MONONITRATE 30 MG SR 24H TABLET PO SCH (08:23)
[2017-06-15] MEDS: ASPIRIN EC 81 MG TABLET PO SCH (08:23)
[2017-06-15] MEDS: LISINOPRIL 20 MG TABLET PO SCH (08:23)
[2017-06-15 09:12] VITALS: O2SAT 92
--- NOTE | 2017-06-15 09:34 | DCSUMMARY ---
Hospitalization Summary Admit Date: 06/06/17 Discharge Date: 06/15/17 Hospital Course: Discharge diagnoses 1. Mild colitis versus an artifact on CT 2. Rectal prolapse, reduced 3. Dementia 4. History of coronary artery disease status post CABG 5. Hypothyroidism 6. History of ischemic stroke 7. Hypertension 8. Hyperlipidemia 9. Irritable bowel syndrome 10. Depression 11. History of right leg and ankle fractures status post open reduction internal fixation in 1970 12. Recent right ninth rib fracture 13. There is a 3 mm noncalcified nodule in the right upper lobe need follow-up Hospital course This is a 71 years old female with medical history significant for history of coronary artery disease with a previous CABG, hypertension, hypothyroidism and history of previous stroke who was brought to hospital for evaluation because of nausea and dry heaving evaluation in the ER raise the possibility of mild colitis versus an artifact and she was admitted to the hospital. It was also noted that she had a rectal prolapse. She was started on antibiotics for the possible colitis. Regarding the rectal prolapse this was reduced and it was suggested that she follow-up with the surgeon as an outpatient. It was noted that patient have memory issues and the testing revealed that she had dementia and needed help before arranged before she goes back home. She was kept longer in the hospital with physical therapy here and arrangements were made for her to have home health nurse to check on her medications intake at home. She did have a CT of the chest which showed small right pleural effusion with right mild lower lobe atelectasis. In addition there is a 3 mm nodule noncalcified in the posterior right upper lobe need follow-up. I saw the patient on the day of discharge she was denying symptoms. There was no chest pain, no shortness of breath. She had her breakfast she did not appear in distress her exam was not remarkable except some evidence of osteoarthritis in her hands. We thought she could be discharged home and follow -up with her new primary. Regarding the rectal prolapse she'll follow-up with the surgeon as an outpatient. Her blood pressure was elevated and Dr. Carroll wrote a prescription to add Norvasc to her medications. Dr. Carroll discontinued her Lasix, her Singulair, Lipitor, Ativan and adjusted the dose of the levothyroxine this need to be reevaluated as an outpatient and see whether the reinstitution of Lasix as required. I didn't see evidence of volume overload when I saw her. Laboratory Results 06/06/17 06/06/17 06/06/17 Range/Units 11:24 11:24 11:24 WBC 6.17 (4.8-10.8) 10^3/uL RBC 3.76 L (4.20-5.40) 10^6/uL Hgb 11.4 L (12.0-16.0) g/dL Hct 33.6 L (37.0-47.0) % MCV 89.4 (81-99) FL MCH 30.3 (27-31) PG MCHC 33.9 (33-37) g/dL RDW Std Deviation 37.9 L (39-50) fL RDW Coeff of Carlin 12.0 (11.5-14.5) % Plt Count 286 (140-350) 10*3/uL MPV 9.5 (7.4-12.2) FL Immature Gran % (Auto) 0.2 (0-5) % Neut % (Auto) 81.8 H (50-80) % Lymph % (Auto) 11.0 (10-50) % Pierce % (Auto) 5.8 (5-15) % Eos % (Auto) 1.0 (0-8) % Baso % (Auto) 0.2 (0-1) % Immature Gran # (Auto) 0.01 10*3/UL Neut # (Auto) 5.05 10*3/UL Lymph # (Auto) 0.68 10*3/uL Pierce # (Auto) 0.36 (0.3-0.8) 10*3/UL Eos # (Auto) 0.06 10*3/UL Baso # (Auto) 0.01 10*3/UL WBC Morphology Comment Normal morphology (NORM) Plt Morphology Comment Normal morphology (NORM) RBC Morph Comment Normal morphology (NORM) Sodium (135-145) meq/L Potassium (3.8-5.2) meq/L Chloride (98-112) meq/L Carbon Dioxide (23-33) meq/L Anion Gap (5-20) BUN (7-22) mg/dL Creatinine (0.50-1.20) mg/dL BUN/Creatinine Ratio (6-20) Glucose (78-110) mg/dL Calculated Osmolality (267-292) mOsm/kg Lactic Acid 0.7 (0.70-2.10) MMOL/L Calcium (8.7-10.7) mg/dL Magnesium 1.7 (1.6-2.4) mg/dL Total Bilirubin (0.3-1.2) mg/dL AST (8-39) IU/L ALT (9-52) IU/L Alkaline Phosphatase (38-126) IU/L Troponin I (< 0.040) ng/mL NT-Pro-B Natriuret Pep (0-125) PG/ML Total Protein (6.1-8.0) g/dL Albumin (3.5-4.8) g/dL Globulin (2.50-4.10) g/dL Albumin/Globulin Ratio (1.3-2.0) mg/g Amylase (30-110) U/L Lipase (23-300) IU/L Vitamin B12 (239-931) pg/mL Serum Folate (2.76-20.0) NG/ML Ur Collection Type Cath specimen Urine Color Yellow (Y) Urine Clarity Clear (CLEAR) Urine pH 6.0 (5.0-8.5) Ur Specific [place] 1.010 (1.005-1.030) Urine Protein Negative (NEG) mg/dl Urine Glucose (UA) Negative (NEG) mg/dL Urine Ketones 15 (NEG) Urine Occult Blood Trace-intact H (NEG) Urine Nitrate Negative (NEG) Urine Bilirubin Negative (NEG) Urine Urobilinogen 0.2 (0.2) EU/dL Ur Leukocyte Esterase Negative (NEG) Urine RBC 1-3 (NONE) /hpf Urine WBC 10-15 (NONE) Ur Squamous Epith Cells None (NONE) Ur Renal Epithelial Cell Rare (NONE) Urine Crystals None Urine Bacteria Rare (NONE) Urine Casts None (NONE) Urine Mucus None (NONE) Urine Trichomonas None (NONE) Urine Yeast None (NONE) Ur Culture Indicated? Culture set 06/06/17 06/06/17 06/07/17 Range/Units 11:24 11:24 04:53 WBC 4.65 L (4.8-10.8) 10^3/uL RBC 3.43 L (4.20-5.40) 10^6/uL Hgb 10.5 L (12.0-16.0) g/dL Hct 30.8 L (37.0-47.0) % MCV 89.8 (81-99) FL MCH 30.6 (27-31) PG MCHC 34.1 (33-37) g/dL RDW Std Deviation 38.2 L (39-50) fL RDW Coeff of Carlin 12.1 (11.5-14.5) % Plt Count 271 (140-350) 10*3/uL MPV 9.3 (7.4-12.2) FL Immature Gran % (Auto) 0.2 (0-5) % Neut % (Auto) 58.9 (50-80) % Lymph % (Auto) 27.1 (10-50) % Pierce % (Auto) 8.2 (5-15) % Eos % (Auto) 5.2 (0-8) % Baso % (Auto) 0.4 (0-1) % Immature Gran # (Auto) 0.01 10*3/UL Neut # (Auto) 2.74 10*3/UL Lymph # (Auto) 1.26 10*3/uL Pierce # (Auto) 0.38 (0.3-0.8) 10*3/UL Eos # (Auto) 0.24 10*3/UL Baso # (Auto) 0.02 10*3/UL WBC Morphology Comment Normal morphology (NORM) Plt Morphology Comment Normal morphology (NORM) RBC Morph Comment Normal morphology (NORM) Sodium 139 (135-145) meq/L Potassium 3.8 (3.8-5.2) meq/L Chloride 108 (98-112) meq/L Carbon Dioxide 22 L (23-33) meq/L Anion Gap 9 (5-20) BUN 10 (7-22) mg/dL Creatinine 0.5 (0.50-1.20) mg/dL BUN/Creatinine Ratio 20.00 (6-20) Glucose 105 (78-110) mg/dL Calculated Osmolality 286.0 (267-292) mOsm/kg Lactic Acid (0.70-2.10) MMOL/L Calcium 9.6 (8.7-10.7) mg/dL Magnesium (1.6-2.4) mg/dL Total Bilirubin 0.6 (0.3-1.2) mg/dL AST 33 (8-39) IU/L ALT 48 (9-52) IU/L Alkaline Phosphatase 88 (38-126) IU/L Troponin I (< 0.040) ng/mL NT-Pro-B Natriuret Pep (0-125) PG/ML Total Protein 6.0 L (6.1-8.0) g/dL Albumin 3.5 (3.5-4.8) g/dL Globulin 2.5 (2.50-4.10) g/dL Albumin/Globulin Ratio 1.40 (1.3-2.0) mg/g Amylase 41 (30-110) U/L Lipase 29 (23-300) IU/L Vitamin B12 (239-931) pg/mL Serum Folate (2.76-20.0) NG/ML Ur Collection Type Urine Color (Y) Urine Clarity (CLEAR) Urine pH (5.0-8.5) Ur Specific [place] (1.005-1.030) Urine Protein (NEG) mg/dl Urine Glucose (UA) (NEG) mg/dL Urine Ketones (NEG) Urine Occult Blood (NEG) Urine Nitrate (NEG) Urine Bilirubin (NEG) Urine Urobilinogen (0.2) EU/dL Ur Leukocyte Esterase (NEG) Urine RBC (NONE) /hpf Urine WBC (NONE) Ur Squamous Epith Cells (NONE) Ur Renal Epithelial Cell (NONE) Urine Crystals Urine Bacteria (NONE) Urine Casts (NONE) Urine Mucus (NONE) Urine Trichomonas (NONE) Urine Yeast (NONE) Ur Culture Indicated? 06/07/17 06/08/17 06/08/17 Range/Units 04:53 04:13 04:13 WBC 7.22 (4.8-10.8) 10^3/uL RBC 4.04 L (4.20-5.40) 10^6/uL Hgb 12.5 (12.0-16.0) g/dL Hct 36.1 L (37.0-47.0) % MCV 89.4 (81-99) FL MCH 30.9 (27-31) PG MCHC 34.6 (33-37) g/dL RDW Std Deviation 39.8 (39-50) fL RDW Coeff of Carlin 12.4 (11.5-14.5) % Plt Count 277 (140-350) 10*3/uL MPV 9.5 (7.4-12.2) FL Immature Gran % (Auto) 0.1 (0-5) % Neut % (Auto) 72.2 (50-80) % Lymph % (Auto) 16.3 (10-50) % Pierce % (Auto) 7.1 (5-15) % Eos % (Auto) 4.0 (0-8) % Baso % (Auto) 0.3 (0-1) % Immature Gran # (Auto) 0.01 10*3/UL Neut # (Auto) 5.21 10*3/UL Lymph # (Auto) 1.18 10*3/uL Pierce # (Auto) 0.51 (0.3-0.8) 10*3/UL Eos # (Auto) 0.29 10*3/UL Baso # (Auto) 0.02 10*3/UL WBC Morphology Comment Normal morphology (NORM) Plt Morphology Comment Normal morphology (NORM) RBC Morph Comment Normal morphology (NORM) Sodium 142 139 (135-145) meq/L Potassium 2.9 L 4.1 D (3.8-5.2) meq/L Chloride 113 H 112 (98-112) meq/L Carbon Dioxide 23 20 L (23-33) meq/L Anion Gap 6 7 (5-20) BUN 8 6 L (7-22) mg/dL Creatinine 0.6 0.6 (0.50-1.20) mg/dL BUN/Creatinine Ratio 13.33 10.00 (6-20) Glucose 68 L 77 L (78-110) mg/dL Calculated Osmolality 289.0 284.0 (267-292) mOsm/kg Lactic Acid (0.70-2.10) MMOL/L Calcium 8.5 L 9.1 (8.7-10.7) mg/dL Magnesium (1.6-2.4) mg/dL Total Bilirubin 0.5 0.5 (0.3-1.2) mg/dL AST 25 26 (8-39) IU/L ALT 41 35 (9-52) IU/L Alkaline Phosphatase 63 72 (38-126) IU/L Troponin I (< 0.040) ng/mL NT-Pro-B Natriuret Pep (0-125) PG/ML Total Protein 5.3 L 5.3 L (6.1-8.0) g/dL Albumin 2.8 L 3.0 L (3.5-4.8) g/dL Globulin 2.5 2.3 L (2.50-4.10) g/dL Albumin/Globulin Ratio 1.10 L 1.30 (1.3-2.0) mg/g Amylase (30-110) U/L Lipase (23-300) IU/L Vitamin B12 (239-931) pg/mL Serum Folate (2.76-20.0) NG/ML Ur Collection Type Urine Color (Y) Urine Clarity (CLEAR) Urine pH (5.0-8.5) Ur Specific [place] (1.005-1.030) Urine Protein (NEG) mg/dl Urine Glucose (UA) (NEG) mg/dL Urine Ketones (NEG) Urine Occult Blood (NEG) Urine Nitrate (NEG) Urine Bilirubin (NEG) Urine Urobilinogen (0.2) EU/dL Ur Leukocyte Esterase (NEG) Urine RBC (NONE) /hpf Urine WBC (NONE) Ur Squamous Epith Cells (NONE) Ur Renal Epithelial Cell (NONE) Urine Crystals Urine Bacteria (NONE) Urine Casts (NONE) Urine Mucus (NONE) Urine Trichomonas (NONE) Urine Yeast (NONE) Ur Culture Indicated? 06/09/17 06/11/17 06/11/17 Range/Units 21:00 05:15 05:15 WBC 5.00 (4.8-10.8) 10^3/uL RBC 3.70 L (4.20-5.40) 10^6/uL Hgb 11.2 L (12.0-16.0) g/dL Hct 33.4 L (37.0-47.0) % MCV 90.3 (81-99) FL MCH 30.3 (27-31) PG MCHC 33.5 (33-37) g/dL RDW Std Deviation 39.4 (39-50) fL RDW Coeff of Carlin 12.4 (11.5-14.5) % Plt Count 340 (140-350) 10*3/uL MPV 9.0 (7.4-12.2) FL Immature Gran % (Auto) 0 (0-5) % Neut % (Auto) 66.8 (50-80) % Lymph % (Auto) 17.6 (10-50) % Pierce % (Auto) 7.6 (5-15) % Eos % (Auto) 7.8 (0-8) % Baso % (Auto) 0.2 (0-1) % Immature Gran # (Auto) 0 10*3/UL Neut # (Auto) 3.34 10*3/UL Lymph # (Auto) 0.88 10*3/uL Pierce # (Auto) 0.38 (0.3-0.8) 10*3/UL Eos # (Auto) 0.39 10*3/UL Baso # (Auto) 0.01 10*3/UL WBC Morphology Comment Normal morphology (NORM) Plt Morphology Comment Normal morphology (NORM) RBC Morph Comment Normal morphology (NORM) Sodium (135-145) meq/L Potassium (3.8-5.2) meq/L Chloride (98-112) meq/L Carbon Dioxide (23-33) meq/L Anion Gap (5-20) BUN (7-22) mg/dL Creatinine (0.50-1.20) mg/dL BUN/Creatinine Ratio (6-20) Glucose (78-110) mg/dL Calculated Osmolality (267-292) mOsm/kg Lactic Acid (0.70-2.10) MMOL/L Calcium (8.7-10.7) mg/dL Magnesium (1.6-2.4) mg/dL Total Bilirubin (0.3-1.2) mg/dL AST (8-39) IU/L ALT (9-52) IU/L Alkaline Phosphatase (38-126) IU/L Troponin I < 0.012 (< 0.040) ng/mL NT-Pro-B Natriuret Pep (0-125) PG/ML Total Protein (6.1-8.0) g/dL Albumin (3.5-4.8) g/dL Globulin (2.50-4.10) g/dL Albumin/Globulin Ratio (1.3-2.0) mg/g Amylase (30-110) U/L Lipase (23-300) IU/L Vitamin B12 > 1000 H (239-931) pg/mL Serum Folate 19.0 (2.76-20.0) NG/ML Ur Collection Type Urine Color (Y) Urine Clarity (CLEAR) Urine pH (5.0-8.5) Ur Specific [place] (1.005-1.030) Urine Protein (NEG) mg/dl Urine Glucose (UA) (NEG) mg/dL Urine Ketones (NEG) Urine Occult Blood (NEG) Urine Nitrate (NEG) Urine Bilirubin (NEG) Urine Urobilinogen (0.2) EU/dL Ur Leukocyte Esterase (NEG) Urine RBC (NONE) /hpf Urine WBC (NONE) Ur Squamous Epith Cells (NONE) Ur Renal Epithelial Cell (NONE) Urine Crystals Urine Bacteria (NONE) Urine Casts (NONE) Urine Mucus (NONE) Urine Trichomonas (NONE) Urine Yeast (NONE) Ur Culture Indicated? 06/11/17 06/14/17 Range/Units 05:15 04:43 WBC (4.8-10.8) 10^3/uL RBC (4.20-5.40) 10^6/uL Hgb (12.0-16.0) g/dL Hct (37.0-47.0) % MCV (81-99) FL MCH (27-31) PG MCHC (33-37) g/dL RDW Std Deviation (39-50) fL RDW Coeff of Carlin (11.5-14.5) % Plt Count (140-350) 10*3/uL MPV (7.4-12.2) FL Immature Gran % (Auto) (0-5) % Neut % (Auto) (50-80) % Lymph % (Auto) (10-50) % Pierce % (Auto) (5-15) % Eos % (Auto) (0-8) % Baso % (Auto) (0-1) % Immature Gran # (Auto) 10*3/UL Neut # (Auto) 10*3/UL Lymph # (Auto) 10*3/uL Pierce # (Auto) (0.3-0.8) 10*3/UL Eos # (Auto) 10*3/UL Baso # (Auto) 10*3/UL WBC Morphology Comment (NORM) Plt Morphology Comment (NORM) RBC Morph Comment (NORM) Sodium 136 (135-145) meq/L Potassium 4.3 (3.8-5.2) meq/L Chloride 105 (98-112) meq/L Carbon Dioxide 24 (23-33) meq/L Anion Gap 7 (5-20) BUN 6 L (7-22) mg/dL Creatinine 0.6 (0.50-1.20) mg/dL BUN/Creatinine Ratio 10.00 (6-20) Glucose 81 (78-110) mg/dL Calculated Osmolality 278.0 (267-292) mOsm/kg Lactic Acid (0.70-2.10) MMOL/L Calcium 9.2 (8.7-10.7) mg/dL Magnesium (1.6-2.4) mg/dL Total Bilirubin (0.3-1.2) mg/dL AST (8-39) IU/L ALT (9-52) IU/L Alkaline Phosphatase (38-126) IU/L Troponin I (< 0.040) ng/mL NT-Pro-B Natriuret Pep 259 H (0-125) PG/ML Total Protein (6.1-8.0) g/dL Albumin (3.5-4.8) g/dL Globulin (2.50-4.10) g/dL Albumin/Globulin Ratio (1.3-2.0) mg/g Amylase (30-110) U/L Lipase (23-300) IU/L Vitamin B12 (239-931) pg/mL Serum Folate (2.76-20.0) NG/ML Ur Collection Type Urine Color (Y) Urine Clarity (CLEAR) Urine pH (5.0-8.5) Ur Specific [place] (1.005-1.030) Urine Protein (NEG) mg/dl Urine Glucose (UA) (NEG) mg/dL Urine Ketones (NEG) Urine Occult Blood (NEG) Urine Nitrate (NEG) Urine Bilirubin (NEG) Urine Urobilinogen (0.2) EU/dL Ur Leukocyte Esterase (NEG) Urine RBC (NONE) /hpf Urine WBC (NONE) Ur Squamous Epith Cells (NONE) Ur Renal Epithelial Cell (NONE) Urine Crystals Urine Bacteria (NONE) Urine Casts (NONE) Urine Mucus (NONE) Urine Trichomonas (NONE) Urine Yeast (NONE) Ur Culture Indicated? Discharge instruction Diet regular Activity as tolerated Medications Home Medications Medication Instructions Recorded Confirmed Type Aspirin [Ecotrin] 81 mg PO DAILY 03/08/13 06/06/17 History Calcium Carbonate/Vitamin D3 1 tab PO QD #30 tab 07/07/15 06/06/17 History [Calcium 600 + Vit D 200 Tablet] Nitroglycerin 0.4 mg SL ONCE #25 tab 09/14/15 06/06/17 History Cholecalciferol (Vitamin D3) 1 tab PO QD #30 tab 08/09/16 06/06/17 Rx [Vitamin D3] Cyanocobalamin (Vitamin B-12) 1 tab PO QD #30 tab 08/09/16 06/06/17 Rx [Vitamin B12] Eluxadoline [Viberzi] 1 tab PO BID #60 tab 12/18/16 Clinic Ibuprofen 1 tab PO BID PRN #60 tab 01/15/17 06/06/17 History Isosorbide Mononitrate [Isosorbide 1 tab PO QD #30 tab 03/01/17 06/06/17 Rx Mononitrate ER] montelukast 10 mg tablet 10 mg PO QDAY #30 tab 06/01/17 06/06/17 Rx Amlodipine Besylate [Norvasc] 10 mg PO DAILY #30 tab 06/14/17 Rx Levothyroxine Sodium [Synthroid] 125 mcg PO DAILY@0530 #90 tab 06/14/17 Rx Lisinopril [Prinivil Tab] 20 mg PO DAILY #30 tab 06/14/17 Rx Bisacodyl EC Tab [Dulcolax Tab] 10 mg PO BID PRN tab 06/15/17 Rx Desvenlafaxine Succinate [Pristiq] 1 tab PO QD #30 tab NS 06/15/17 Rx Follow-up with her PCP as scheduled, with Dr. Garces as scheduled Condition at discharge was stable for discharge Exam - Vitals Vital Signs: Vital Signs Temperature 98 F Temperature Source Temporal Artery Scan Pulse Rate [Apical] 78 Pulse Rate [Pulse Oximeter] 74 Pulse Rate 81 Respiratory Rate 16 Blood Pressure [Right Arm] 174/86 Blood Pressure [Left Arm] 134/55 Blood Pressure 163/60 Pulse Ox 92 Oxygen Flow Rate 1 Oxygen Delivery Method Room Air Height 4 ft 9 in Weight 114 lb - General General Appearance: No Acute Distress, Cooperative - Head Head Exam: Normal Inspection, Atraumatic - Eye Eye Exam: POSITIVE: Normal Appearance - ENT ENT Exam: POSITIVE: Normal Exam - Neck Neck Exam: Normal Inspection - Respiratory Respiratory Exam: POSITIVE: Clear to Auscultation - Bilaterally - Cardiovascular Cardiovascular Exam: POSITIVE: RRR - GI/Abdominal GI/Abdominal Exam: POSITIVE: Normal Bowel Sounds, Non Tender, Non Distended, Soft - Rectal Rectal Exam: POSITIVE: Deferred - External Exam: POSITIVE: Deferred - Extremities Extremities Exam: POSITIVE: Normal Inspection Additional Extremities Exam Details: Changes of Osteoarthritis in the hands noted - Back Back Exam: POSITIVE: Normal Inspection - Neurological Neurological Exam: POSITIVE: Alert, CN II-XII Intact, Speech Intact / Clear, Moves All Extremities Equally - Psychiatric Psychiatric Exam: POSITIVE: Normal Affect
[2017-06-15 13:08] VITALS: BP 131/61; RESP 18; TEMP 97.8
--- NOTE | 2017-06-15 15:16 | OT PM DAY ---
Diagnosis : Weakness PM - Occupational Therapy S: The patient reports she would really like to go home. O: The patient participated in red theraband exercises for horizontal abduction x20, biceps/triceps with two pounds, flexion with two pounds, abduction with two pounds, internal/external rotation with red theraband x20 repetitions, and arm bike x6 minutes. A: The patient is making gains and is doing better with her physical abilities. P: Continue seeing patient BID during the week and one time per day over the weekend for upper extremity strengthening, ADLs, and overall functional mobility. MTDD
== END 2017-06-15 13:40 | disposition home or self-care (01) | DRG 392 ==
LOC: ER 10:24 → MED/SURG 14:28
PROVIDERS: ADMIT Internal Medicine; ATTEND Internal Medicine